=== PATIENT | female | born 1965 | race African-American/Black ===

== ENCOUNTER 2016-05-25 18:00 | Emergency (ER) | payer MEDICAID ==
--- NOTE | 2016-05-25 18:32 | ER Document Report ---
ED Medical Screen (RME) - General Stated Complaint: CHEST PAIN Notes: 51 yo female c/o chest tightness with palpitations since last night. + shortness of breath, left arm numbness. no previous cardiac hx. + HTN, no DM, + fam hx. non smoker. no aggrevating or alleviating factors. pain has improved since last night. pain 2/5 presently TRAVEL OUTSIDE OF THE [place] IN LAST 30 DAYS: No - Related Data Allergies/Adverse Reactions: No Known Allergies Allergy (Verified 05/25/16 18:11) Past Medical History GI Medical History: Reports: Hx Gastroesophageal Reflux Disease Past Surgical History: Reports: Hx Cholecystectomy - Immunizations Hx Diphtheria, Pertussis, Tetanus Vaccination: Yes
[2016-05-25 19:05] LABS: ABSOLUTE EOSINOPHILS # (AUTO) 0.3 10^3/uL (0.0-0.6); ABSOLUTE LYMPHOCYTES (AUTO) 4.4 10^3/uL (0.5-4.7); ABSOLUTE MONOCYTES (AUTO) 0.6 10^3/uL (0.1-1.4); ABSOLUTE NEUT (AUTO) 4.1 10^3/uL (1.7-8.2); BASOPHILS % (AUTO) 0.3 % (0-2); EOSINOPHILS % (AUTO) 2.8 % (0-6); HEMOGLOBIN 12.2 g/dL (12.0-15.5); HGB HCT DIFFERENCE -2.4; LYMPHOCYTES % (AUTO) 47.1 % (13-45); MEAN CORPUSCULAR HEMOGLOBIN 25.6 pg (27.0-33.4); MEAN CORPUSCULAR HGB CONC 31.2 g/dL (32.0-36.0); MEAN CORPUSCULAR VOLUME 82 fl (80-97); MONOCYTES % (AUTO) 6.2 % (3-13); RED BLOOD COUNT 4.75 10^6/uL (3.72-5.28); RED CELL DISTRIBUTION WIDTH 14.6 % (11.5-14.0); SEGMENTED NEUTROPHILS % (AUTO) 43.6 % (42-78); WHITE BLOOD COUNT 9.4 10^3/uL (4.0-10.5)
[2016-05-25 19:22] LABS: ALANINE AMINOTRANSFERASE 98 U/L (9-52); ALBUMIN 3.9 g/dL (3.5-5.0); ALKALINE PHOSPHATASE 116 U/L (38-126); ANION GAP 12 (5-19); ASPARTATE AMINO TRANSFERASE 81 U/L (14-36); BILIRUBIN,TOTAL 0.5 mg/dL (0.2-1.3); BLOOD UREA NITROGEN 17 mg/dL (7-20); CALCIUM 9.6 mg/dL (8.4-10.2); CARBON DIOXIDE 29 mmol/L (22-30); CHLORIDE 104 mmol/L (98-107); CREATINE KINASE 134 U/L (30-135); CREATININE RESULT 0.82 mg/dL (0.52-1.25); GLUCOSE 98 mg/dL (75-110); SODIUM 144.6 mmol/L (137-145); TOTAL PROTEIN 7.3 g/dL (6.3-8.2)
[2016-05-25 19:34] LABS: CREATINE KINASE MB 0.49 ng/mL (<4.55); TROPONIN I < 0.012 ng/mL
--- NOTE | 2016-05-25 20:48 | ER Document Report ---
ED Cardiac - General Mode of Arrival: Ambulatory Information source: Patient TRAVEL OUTSIDE OF THE [place] IN LAST 30 DAYS: No - HPI Patient complains to provider of: Chest pain, Palpitations. denies: Shortness of breath Use of: denies: Caffeine Chest pain location: Other - see above Cardiac risk factors: None Associated symptoms: Other - see above <OLI CARRASQUILLO - Last Filed: 05/26/16 02:25> - General TRAVEL OUTSIDE OF THE [place] IN LAST 30 DAYS: No <JULIUS HIGGINS - Last Filed: 05/26/16 03:08> - General Chief Complaint: Chest Pain > 30 Stated Complaint: CHEST PAIN Notes: 51 year old female presents to the ED complaining of left upper chest pain that started yesterday. Patient states that she had an episode of diaphoresis, heart palpitations and flutter, left upper chest pain, and an abnormal sensation to the chest yesterday afternoon that lasted for a few hours. Patient decided to take a sleeping pill and sleep it off. The patient woke up this morning with the symptoms resolved, but states that a few hours later she had another episode. Patient went to the urgent care and was told to come to the ED for lab work. Patient additionally states that she recently stopped taking gabapentin and started taking Lyrica yesterday. Patient denies shortness of breath and states that she is currently not in pain. Patient recently had her thyroid checked by her primary care provider, Dr. Quiñones. (OLI CARRASQUILLO) - Related Data Allergies/Adverse Reactions: No Known Allergies Allergy (Verified 05/25/16 18:11) Past Medical History - General Information source: Patient - Social History Smoking Status: Never Smoker Chew tobacco use (# tins/day): No Frequency of alcohol use: None Drug Abuse: None Family History: Other Patient has suicidal ideation: No Patient has homicidal ideation: No GI Medical History: Reports: Hx Gastroesophageal Reflux Disease Past Surgical History: Reports: Hx Cholecystectomy <OLI CARRASQUILLO - Last Filed: 05/26/16 02:25> - Social History Smoking Status: Never Smoker Chew tobacco use (# tins/day): No Frequency of alcohol use: None Drug Abuse: None Family History: Other - No family history of early heart attacks or strokes. Patient has suicidal ideation: No Patient has homicidal ideation: No Renal/ Medical History: Denies: Hx Peritoneal Dialysis GI Medical History: Reports: Hx Gastroesophageal Reflux Disease Past Surgical History: Reports: Hx Cholecystectomy - Immunizations Hx Diphtheria, Pertussis, Tetanus Vaccination: Yes <JULIUS HIGGINS - Last Filed: 05/26/16 03:08> Review of Systems - Review of Systems Constitutional: See HPI, Diaphoresis EENT: No symptoms reported Cardiovascular: See HPI, Chest pain - left upper chest, Palpitations, Other - flutter Respiratory: No symptoms reported Gastrointestinal: No symptoms reported Genitourinary: No symptoms reported Female Genitourinary: No symptoms reported Musculoskeletal: No symptoms reported Skin: No symptoms reported Hematologic/Lymphatic: No symptoms reported Neurological/Psychological: No symptoms reported -: Yes All other systems reviewed and negative <OLI CARRASQUILLO - Last Filed: 05/26/16 02:25> Physical Exam - Vital signs Interpretation: Normal - General General appearance: Alert In distress: None - HEENT Head: Normocephalic, Atraumatic Eyes: Normal Extraocular movements intact: Yes Pupils: PERRL - Respiratory Respiratory status: No respiratory distress Chest status: Nontender Breath sounds: Normal Chest palpation: Normal - Cardiovascular Rhythm: Regular Heart sounds: Normal auscultation - Abdominal Inspection: Normal - Back Back: Normal - Extremities General upper extremity: Normal inspection, Normal ROM General lower extremity: Normal inspection, Normal ROM - Neurological Neuro grossly intact: Yes Cognition: Normal Orientation: AAOx4 Fred Coma Scale Eye Opening: Spontaneous [place] Coma Scale Verbal: Oriented Fred Coma Scale Motor: Obeys Commands [place] Coma Scale Total: 15 Speech: Normal - Psychological Associated symptoms: Normal affect, Normal mood - Skin Skin Temperature: Warm Skin Moisture: Dry Skin Color: Normal <OLI CARRASQUILLO - Last Filed: 05/26/16 02:25> <JULIUS HIGGINS - Last Filed: 05/26/16 03:08> - Vital signs Vitals: Pulse Resp BP Pulse Ox 78 16 133/89 H 99 05/25/16 20:56 05/25/16 20:56 05/25/16 20:56 05/25/16 20:56 Course - Laboratory Result Diagrams: 05/25/16 18:35 05/25/16 18:35 <OLI CARRASQUILLO - Last Filed: 05/26/16 02:25> - Laboratory Result Diagrams: 05/25/16 18:35 05/25/16 18:35 - Diagnostic Test Radiology reviewed: Reports reviewed - EKG Interpretation by Me EKG shows normal: Sinus rhythm Rate: Normal Rhythm: NSR <JULIUS HIGGINS - Last Filed: 05/26/16 03:08> - Re-evaluation Re-evalutation: 05/25 Patient is no acute findings on blood work or imaging. Patient recently started there cutting could be having palpitations from that. She isn't follow- up appointment with her doctor in the morning. Patient wants to go home. No symptoms currently. Stable for discharge. Return if any worsening or concerning symptoms. Understands and agrees with plan. (JULIUS HIGGINS) - Vital Signs Vital signs: Temp Pulse Resp BP Pulse Ox 78 16 133/89 H 99 05/25/16 20:56 05/25/16 20:56 05/25/16 20:56 05/25/16 20:56 - Laboratory Laboratory results interpreted by me: 05/25/16 05/25/16 18:35 18:35 MCH 25.6 L MCHC 31.2 L RDW 14.6 H Lymphocytes % 47.1 H AST 81 H ALT 98 H (OLI CARRASQUILLO) (JULIUS HIGGINS) Discharge <OLI CARRASQUILLO - Last Filed: 05/26/16 02:25> <JULIUS HIGGINS - Last Filed: 05/26/16 03:08> - Discharge Clinical Impression: Atypical chest pain, Palpitations, Medication side effect Condition: Stable Disposition: HOME, SELF-CARE Instructions: Chest Pain of Unclear Cause ([facility]), Palpitations (Irregular or Rapid Heartrate) ([facility]), Medication Side Effects ([facility]) Forms: Return to Work Referrals: TAPAN QUIÑONES MD [Primary Care Provider] - Follow up tomorrow Scribe Documentation - Scribe Written by Marilou:: Marilou Ricardo, 05/25/2016 21:08 acting as scribe for :: Joaquín <OLI CARRASQUILLO - Last Filed: 05/26/16 02:25>
[2016-05-25 20:58] VITALS: BP 133/89
--- NOTE | 2016-05-25 21:46 | EKG REPORT ---
SEVERITY:- NORMAL ECG - SINUS RHYTHM : Confirmed by: Pinky Young MD 25-May-2016 21:45:37
== END 2016-05-25 21:02 | disposition home or self-care (01) ==
LOC: ER 18:00
DX: R07.89 Other chest pain (principal); R00.2 Palpitations; I49.8 Other specified cardiac arrhythmias; R61 Generalized hyperhidrosis; T50.995A Adverse effect of other drugs, medicaments and biological substances, initial encounter
CPT/HCPCS: 36415; 71020; 80053; 82550; 82553; 84484; 85025; 93005; 93010; 99285

== ENCOUNTER 2017-09-06 17:01 | Emergency (ER) | payer MEDICAID, OTHER ==
[2017-09-06] MEDS ORDERED: VALSARTAN 160 MG TABLET PO ONE (17:31)
[2017-09-06] MEDS ORDERED: HYDROCHLOROTHIAZIDE 12.5 MG CAPSULE PO ONE (17:31)
[2017-09-06] MEDS ORDERED: KETOROLAC TROMETHAMINE 60 MG/2 ML SDV IM ONE (17:33)
[2017-09-06 18:03] LABS: APPEARANCE,URINE SLIGHTLY-CLOUDY; BILIRUBIN,URINE NEGATIVE (NEGATIVE); COLOR,URINE YELLOW; GLUCOSE, URINE NEGATIVE (NEGATIVE); KETONES,URINE NEGATIVE (NEGATIVE); LEUKOCYTE ESTERASE,URINE TRACE (NEGATIVE); NITRITE,URINE NEGATIVE (NEGATIVE); PROTEIN,URINE NEGATIVE (NEGATIVE); URINE SPECIFIC GRAVITY 1.011; UROBILINOGEN,URINE NEGATIVE mg/dL (<2.0)
[2017-09-06] MEDS ORDERED: NITROFURANTOIN MONOHYD/M-CRYST 100 MG CAPSULE PO ONE (18:13)
--- NOTE | 2017-09-06 18:35 | ER Document Report ---
ED General - General Chief Complaint: High Blood Pressure Stated Complaint: HEADACHE/BLOOD PRESSURE ISSUES Time Seen by Provider: 09/06/17 17:28 TRAVEL OUTSIDE OF THE [place] IN LAST 30 DAYS: No - HPI Patient complains to provider of: Headache urinary frequency Notes: Patient around her blood pressure medication approximately 2 weeks ago started having headaches 2 days ago and also having urinary frequency. Patient describes headache as achy bilateral temporal region. Patient tried to obtain her medications for her PCP however returned to come to the ER for further evaluation. Denies any nausea vomiting denies any fevers chills. Patient resting comfortably upon my evaluation denies any recent trauma or antibiotic use. - Related Data Allergies/Adverse Reactions: No Known Allergies Allergy (Verified 09/06/17 17:17) Past Medical History - Social History Smoking Status: Never Smoker Chew tobacco use (# tins/day): No Frequency of alcohol use: Rare Drug Abuse: None Family History: Other - No family history of early heart attacks or strokes. Patient has suicidal ideation: No Patient has homicidal ideation: No - Past Medical History Cardiac Medical History: Reports: Hx Hypertension Renal/ Medical History: Denies: Hx Peritoneal Dialysis GI Medical History: Reports: Hx Gastroesophageal Reflux Disease Past Surgical History: Reports: Hx Cholecystectomy, Hx Orthopedic Surgery - right knee repair - Immunizations Hx Diphtheria, Pertussis, Tetanus Vaccination: Yes Review of Systems - Review of Systems Constitutional: No symptoms reported EENT: No symptoms reported Cardiovascular: No symptoms reported Respiratory: No symptoms reported Gastrointestinal: No symptoms reported Genitourinary: Frequency Female Genitourinary: No symptoms reported Musculoskeletal: No symptoms reported Skin: No symptoms reported Hematologic/Lymphatic: No symptoms reported Neurological/Psychological: Headaches -: Yes All other systems reviewed and negative Physical Exam - Vital signs Vitals: Temp Pulse Resp BP Pulse Ox 98.4 F 66 18 172/111 H 99 09/06/17 17:12 09/06/17 17:12 09/06/17 17:12 09/06/17 17:12 09/06/17 17:12 Interpretation: Hypertensive - General General appearance: Appears well, Alert - HEENT Head: Normocephalic, Atraumatic Eyes: Normal Pupils: PERRL - Respiratory Respiratory status: No respiratory distress Chest status: Nontender Breath sounds: Normal Chest palpation: Normal - Cardiovascular Rhythm: Regular Heart sounds: Normal auscultation Murmur: No - Abdominal Inspection: Normal Distension: No distension Bowel sounds: Normal Tenderness: Nontender Organomegaly: No organomegaly - Back Back: Normal, Nontender - Extremities General upper extremity: Normal inspection, Nontender, Normal color, Normal ROM , Normal temperature General lower extremity: Normal inspection, Nontender, Normal color, Normal ROM , Normal temperature, Normal weight bearing. No: Carol's sign - Neurological Neuro grossly intact: Yes Cognition: Normal Orientation: AAOx4 Fred Coma Scale Eye Opening: Spontaneous [place] Coma Scale Verbal: Oriented [place] Coma Scale Motor: Obeys Commands [place] Coma Scale Total: 15 Speech: Normal Motor strength normal: LUE, RUE, LLE, RLE Sensory: Normal - Psychological Associated symptoms: Normal affect, Normal mood - Skin Skin Temperature: Warm Skin Moisture: Dry Skin Color: Normal Course - Re-evaluation Re-evalutation: 09/06/17 20:48 Patient received her medications by mouth and a prescription was given to the patient. Urinalysis does show signs of bacteria urine culture was sent we will start the patient on Macrobid. Patient did have improvement of her headache with Toradol shot. Neurologically patient has no critical findings I feel patient is safe to be discharged home patient was very grateful for her care. The patient presents with headache without signs of ANESTHESIOLOGY MEDICAL DOCTOR bleed, stroke, infection , or other serious etiology. The patient is neurologically intact. Given the extremely low risk of these diagnoses further testing and evaluation for these possibilities does not appear to be indicated at this time. The patient has been instructed to return if the symptoms worsen or change in any way.. - Vital Signs Vital signs: Temp Pulse Resp BP Pulse Ox 98.4 F 66 18 172/111 H 99 09/06/17 17:12 09/06/17 17:12 09/06/17 17:12 09/06/17 17:12 09/06/17 17:12 - Laboratory Laboratory results interpreted by me: 09/06/17 17:35 Urine Blood MODERATE H Ur Leukocyte Esterase TRACE H Discharge - Discharge Clinical Impression: Hypertension Qualifiers: Hypertension type: unspecified Qualified Code(s): I10 - Essential (primary) hypertension UTI (urinary tract infection) Qualifiers: Urinary tract infection type: site unspecified Hematuria presence: without hematuria Qualified Code(s): N39.0 - Urinary tract infection, site not specified Condition: Good Disposition: HOME, SELF-CARE Instructions: Urinary Tract Infection ([facility]), High Blood Pressure ([facility]) Additional Instructions: Please follow-up with your primary care physician. Your urinalysis does show signs of a urinary tract infection with bacteria. We will start you on antibiotic called Macrobid. Take your blood pressure medication as prescribed. Recommend Tylenol Motrin for pain control. Prescriptions: Hydrochlorothiazide 12.5 mg PO DAILY #30 capsule Nitrofurantoin/Nitrofuran Mac [Macrobid 100 mg Capsule] 1 tab PO BID #14 capsule Valsartan 160 mg PO DAILY #30 tablet Referrals: TAPAN QUIÑONES MD [Primary Care Provider] - Follow up in 1 week
[2017-09-06 19:00] VITALS: BP 155/90
== END 2017-09-06 19:00 | disposition home or self-care (01) ==
LOC: ER 17:01
DX: I10 Essential (primary) hypertension (principal); T50.2X6A Underdosing of carbonic-anhydrase inhibitors, benzothiadiazides and other diuretics, initial encounter; T44.5X6A Underdosing of predominantly beta-adrenoreceptor agonists, initial encounter; Z91.128 Patient's intentional underdosing of medication regimen for other reason; Z91.14 Patient's other noncompliance with medication regimen; N39.0 Urinary tract infection, site not specified; R35.0 Frequency of micturition; R51 Headache
CPT/HCPCS: 99283; 96372; 87086; 87088; 81001; 87186; J1885; J8499

== ENCOUNTER 2018-11-12 12:02 | Emergency (ER) | payer BC ==
--- NOTE | 2018-11-12 13:31 | RADIOLOGY REPORT (SQ) ---
EXAM DESCRIPTION: CHEST 2 VIEWS COMPLETED DATE/TIME: 11/12/2018 1:17 pm REASON FOR STUDY: Chest Pain COMPARISON: 05/25/2016 EXAM PARAMETERS: NUMBER OF VIEWS: two views TECHNIQUE: Digital Frontal and Lateral radiographic views of the chest acquired. RADIATION DOSE: NA LIMITATIONS: none FINDINGS: LUNGS AND PLEURA: No opacities, masses or pneumothorax. No pleural effusion. MEDIASTINUM AND HILAR STRUCTURES: No masses or contour abnormalities. HEART AND VASCULAR STRUCTURES: Heart normal size. No evidence for failure. BONES: No acute findings. HARDWARE: None in the chest. OTHER: No other significant finding. IMPRESSION: No acute abnormality of the lungs. TECHNICAL DOCUMENTATION: JOB ID: [id number] [employer]- All Rights Reserved Reading location - IP/workstation name: [email or web address]
--- NOTE | 2018-11-12 13:36 | ER Document Report ---
ED Medical Screen (RME) - General Chief Complaint: Weakness Stated Complaint: DIZZINESS Time Seen by Provider: 11/12/18 13:16 Primary Care Provider: TAPAN QUIÑONES MD [Primary Care Provider] - Follow up as needed Mode of Arrival: Ambulatory Information source: Patient Notes: Patient presents emergency department with feelings of weak dizzy. Reports she felt dizzy yesterday. She reports when she went to work this morning she took her blood pressures and noticed they were low. Patient reports history of hypertension. Patient reports when she got up to walk into the RME. She became dizzy and weak again. Blood pressure is 83/67. Patient reports she feels really weak tired she is falling asleep in RME chair. Reports left arm numbness but has history of this. Reports history of fibromyalgia. Denies headache. Denies chest pain shortness of breath. Denies fever vomiting diarrhea. Ports she is been eating and drinking as normal. Reports she has not taken her blood pressure medication since yesterday morning. I have greeted and performed a rapid initial assessment of this patient. A comprehensive ED assessment and evaluation of the patient, analysis of test results and completion of the medical decision making process will be conducted by additional ED providers. Dictation of this chart was performed using voice recognition software; therefore, there may be some unintended grammatical errors. TRAVEL OUTSIDE OF THE [place] IN LAST 30 DAYS: No - HPI Onset: Yesterday - Related Data Allergies/Adverse Reactions: No Known Allergies Allergy (Verified 11/12/18 12:15) Past Medical History - General Information source: Patient Last Menstrual Period: menopause - Past Medical History Cardiac Medical History: Reports: Hx Hypertension Renal/ Medical History: Denies: Hx Peritoneal Dialysis GI Medical History: Reports: Hx Gastroesophageal Reflux Disease Past Surgical History: Reports: Hx Cholecystectomy, Hx Orthopedic Surgery - right knee repair - Immunizations Hx Diphtheria, Pertussis, Tetanus Vaccination: Yes Physical Exam - Vital signs Vitals: Temp Pulse Resp BP Pulse Ox 98.3 F 115 H 20 98/70 L 96 11/12/18 12:29 11/12/18 12:29 11/12/18 12:29 11/12/18 12:29 11/12/18 12:29 Course - Vital Signs Vital signs: Temp Pulse Resp BP Pulse Ox 98.3 F 115 H 20 98/70 L 96 11/12/18 12:29 11/12/18 12:29 11/12/18 12:29 11/12/18 12:29 11/12/18 12:29 Doctor's Discharge - Discharge Referrals: TAPAN QUIÑONES MD [Primary Care Provider] - Follow up as needed
[2018-11-12] MEDS ORDERED: NORMAL SALINE 1000 ML 1,000 ML IV ONE ×2 (13:41→19:20)
[2018-11-12 14:04] LABS: ABSOLUTE EOSINOPHILS # (AUTO) 0.2 10^3/uL (0.0-0.6); ABSOLUTE MONOCYTES (AUTO) 0.5 10^3/uL (0.1-1.4); ABSOLUTE NEUT (AUTO) 4.2 10^3/uL (1.7-8.2); BASOPHILS % (AUTO) 0.5 % (0-2); EOSINOPHILS % (AUTO) 2.1 % (0-6); HEMATOCRIT 35.9 % (36.0-47.0); HEMOGLOBIN 11.8 g/dL (12.0-15.5); MEAN CORPUSCULAR HEMOGLOBIN 26.9 pg (27.0-33.4); MEAN CORPUSCULAR VOLUME 82 fl (80-97); MONOCYTES % (AUTO) 5.7 % (3-13); PLATELET COUNT 325 10^3/uL (150-450); RED BLOOD COUNT 4.41 10^6/uL (3.72-5.28); RED CELL DISTRIBUTION WIDTH 14.1 % (11.5-14.0); SEGMENTED NEUTROPHILS % (AUTO) 46.7 % (42-78); TOTAL CELLS COUNTED % (AUTO) 100 %
[2018-11-12 14:09] LABS: PROTHROMBIN TIME 13.2 SEC (11.4-15.4)
[2018-11-12 14:10] LABS: APPEARANCE,URINE CLEAR; BILIRUBIN,URINE NEGATIVE (NEGATIVE); COLOR,URINE YELLOW; GLUCOSE, URINE NEGATIVE (NEGATIVE); KETONES,URINE NEGATIVE (NEGATIVE); LEUKOCYTE ESTERASE,URINE NEGATIVE (NEGATIVE); NITRITE,URINE NEGATIVE (NEGATIVE); PROTEIN,URINE NEGATIVE (NEGATIVE); URINE SPECIFIC GRAVITY 1.027; UROBILINOGEN,URINE NEGATIVE mg/dL (<2.0)
[2018-11-12 14:21] LABS: ALANINE AMINOTRANSFERASE 32 U/L (9-52); ALBUMIN 4.1 g/dL (3.5-5.0); ALKALINE PHOSPHATASE 71 U/L (38-126); ANION GAP 8 (5-19); ASPARTATE AMINO TRANSFERASE 23 U/L (14-36); BILIRUBIN,DIRECT 0.3 mg/dL (0.0-0.4); BILIRUBIN,TOTAL 0.3 mg/dL (0.2-1.3); BLOOD UREA NITROGEN 48 mg/dL (7-20); CALCIUM 9.4 mg/dL (8.4-10.2); CARBON DIOXIDE 25 mmol/L (22-30); CHLORIDE 106 mmol/L (98-107); CREATINE KINASE 122 U/L (30-135); GLUCOSE 99 mg/dL (75-110); SODIUM 139.3 mmol/L (137-145); TOTAL PROTEIN 6.9 g/dL (6.3-8.2)
--- NOTE | 2018-11-12 14:30 | RADIOLOGY REPORT (SQ) ---
EXAM DESCRIPTION: CT HEAD WITHOUT COMPLETED DATE/TIME: 11/12/2018 2:16 pm REASON FOR STUDY: weakness, dizzy COMPARISON: 09/14/2015 TECHNIQUE: Axial images acquired through the brain without intravenous contrast. Images reviewed wit h bone, brain and subdural windows. Images stored on PACS. All CT scanners at this facility use dose modulation, iterative reconstruction, and/or weight based d osing when appropriate to reduce radiation dose to as low as reasonably achievable (ALARA). [facility]: Dose Right [facility]: CareDose [facility]: Dose Right [facility]: Teradose 4D [facility]: [employer] RADIATION DOSE: CT Rad equipment meets quality standard of care and radiation dose reduction techniq ues were employed. CTDIvol: 53.2 mGy. DLP: 1124 mGy-cm.. LIMITATIONS: None. FINDINGS: VENTRICLES: Normal size and contour. CEREBRUM: No masses. No hemorrhage. No midline shift. Age appropriate white matter. No evidence for a cute infarction. CEREBELLUM: No masses. No hemorrhage. No alteration of density. No evidence for acute infarction. EXTRA-AXIAL SPACES: No fluid collections. ORBITS AND GLOBE: No intra- or extraconal masses. Normal contour of globe without masses. CALVARIUM: No fracture. PARANASAL SINUSES: No fluid or mucosal thickening. SOFT TISSUES: No mass or hematoma. OTHER: No other significant finding. IMPRESSION: NO ACUTE INTRACRANIAL FINDINGS. EVIDENCE OF ACUTE STROKE: NO. TECHNICAL DOCUMENTATION: JOB ID: [id number] Quality ID # [id number]: Final reports with documentation of one or more dose reduction techniques (e.g., Au tomated exposure control, adjustment of the mA and/or kV according to patient size, use of iterative reconstruction technique) 2010 [employer]- All Rights Reserved Reading location - IP/workstation name: [email or web address]
[2018-11-12 14:32] LABS: CREATINE KINASE MB 0.55 ng/mL (<4.55); TROPONIN I 0.012 ng/mL
--- NOTE | 2018-11-12 19:24 | ER Document Report ---
ED General - General Chief Complaint: Weakness Stated Complaint: DIZZINESS Time Seen by Provider: 11/12/18 13:16 Primary Care Provider: TAPAN QUIÑONES MD [Primary Care Provider] - Follow up as needed Mode of Arrival: Ambulatory TRAVEL OUTSIDE OF THE [place] IN LAST 30 DAYS: No - HPI Notes: Patient is a 53-year-old female presents to the emergency department for evaluation of dizziness. She was at work. She states that every time she got up to do something she became extremely dizzy. She is an RN. She had a colleague check her blood pressure is not it was 70s over 40s. On further questioning the patient states she has a history of high blood pressure. She normally takes losartan/HCTZ. She ran out of that 2 weeks ago. She has not seen her doctor in several months, so her primary care physician refused called in. She was concerned about not taking any blood pressure medications, so she was taking a family members lisinopril. She states she has been having the symptoms for 48 hours, started the medication 3 days ago, but so believes that it is as a result of this medication change. She does have some tingling in her left upper extremity, but she states that this is not new. It is happened in the past. Otherwise she denies any pain. - Related Data Allergies/Adverse Reactions: No Known Allergies Allergy (Verified 11/12/18 12:15) Past Medical History - General Information source: Patient Last Menstrual Period: menopause - Social History Smoking Status: Never Smoker Frequency of alcohol use: None Drug Abuse: None Family History: Reviewed & Not Pertinent, Other - No family history of early heart attacks or strokes. Patient has suicidal ideation: No Patient has homicidal ideation: No - Past Medical History Cardiac Medical History: Reports: Hx Hypertension Renal/ Medical History: Denies: Hx Peritoneal Dialysis GI Medical History: Reports: Hx Gastroesophageal Reflux Disease Past Surgical History: Reports: Hx Cholecystectomy, Hx Orthopedic Surgery - right knee repair - Immunizations Hx Diphtheria, Pertussis, Tetanus Vaccination: Yes Review of Systems - Review of Systems Constitutional: See HPI EENT: No symptoms reported Cardiovascular: See HPI Respiratory: No symptoms reported Gastrointestinal: No symptoms reported Genitourinary: No symptoms reported Musculoskeletal: No symptoms reported Skin: No symptoms reported Neurological/Psychological: No symptoms reported Physical Exam - Vital signs Vitals: Temp Pulse Resp BP Pulse Ox 98.3 F 115 H 20 98/70 L 96 11/12/18 12:29 11/12/18 12:29 11/12/18 12:29 11/12/18 12:29 11/12/18 12:29 - Notes Notes: Vital signs reviewed, please refer to chart. Head is normocephalic, atraumatic. Pupils equal round, reactive to light. Neck is supple without meningismus. Heart is regular rate and rhythm. Lungs are clear to auscultation bilaterally. Abdomen is soft, nontender, normoactive bowel sounds throughout. Extremities without cyanosis, clubbing. Posterior calves are nontender. Peripheral pulses are equal. Skin is warm and dry. Patient is awake, alert, oriented x3. Cranial nerves II - XII are grossly intact without focal neurological deficits. Strength is plus 5 out of 5 bilateral upper and lower extremities. Sensation is intact. Reflexes symmetrical. Intact [id number], rapid alternating mov ements, [id number]. Course - Re-evaluation Re-evalutation: 11/12/18 19:23 Patient presents emergency department for evaluation. She is hypotensive. My strong suspicion is that this is secondary to her medication change to the li sinopril. She is clearly not tolerating it well. The patient agrees. She had been given a liter of normal saline, and her pressure seems to improve, but she did have some drops again. She was given a second bolus. She has no history of congestive heart failure. The patient was told she needs to discontinue the lisinopril as soon as possible. She will be restarted on her losartan. I will not administer the HCTZ at this time, she is to follow-up with her primary care physician in regards to the best choice in regards to that. She voiced understanding to this. She is to return to the ED with worsening or new concerning symptoms of any sort. - Vital Signs Vital signs: Temp Pulse Resp BP Pulse Ox 98.0 F 117 H 16 127/71 H 97 11/12/18 18:16 11/12/18 16:57 11/12/18 20:16 11/12/18 20:16 11/12/18 20:16 - Laboratory Result Diagrams: 11/12/18 13:49 11/12/18 13:49 Laboratory results interpreted by me: 11/12/18 11/12/18 13:49 13:49 Hgb 11.8 L Hct 35.9 L MCH 26.9 L RDW 14.1 H BUN 48 H Discharge - Discharge Clinical Impression: Hypotension Qualifiers: Hypotension type: hypotension due to drug Qualified Code(s): I95.2 - Hypotension due to drugs Condition: Stable Disposition: HOME, SELF-CARE Instructions: Hypotension ([facility]) Additional Instructions: I am writing you a prescription for valsartan, without HCTZ. Please take your blood pressure before restarting this medication. Follow-up with your primary care physician this week. Return to the emergency department with worsening or new concerning symptoms of any sort. Referrals: TAPAN QUIÑONES MD [Primary Care Provider] - Follow up as needed
[2018-11-12 20:54] VITALS: BP 117/83
--- NOTE | 2018-11-14 07:58 | EKG REPORT ---
SEVERITY:- BORDERLINE ECG - SINUS TACHYCARDIA PROBABLE LEFT ATRIAL ABNORMALITY NONSPECIFIC INFERIOR ST-T CHANGES : Confirmed by: Tony Reyes MD 14-Nov-2018 07:58:12
== END 2018-11-12 20:56 | disposition home or self-care (01) ==
LOC: ER 12:02
DX: R53.1 Weakness (principal); R42 Dizziness and giddiness; I95.2 Hypotension due to drugs; I10 Essential (primary) hypertension; Z90.49 Acquired absence of other specified parts of digestive tract
CPT/HCPCS: 93005; 99285; 96360; 96361; 36415; 82553; 82962; 82550; 85025; 85610; 80053; 81001; 84484; 71046; 70450; 93010; J7030

== ENCOUNTER 2018-11-12 22:58 | Inpatient (IN) | payer BC ==
[2018-11-12] MEDS ORDERED: PANTOPRAZOLE SODIUM 40 MG VIAL IV ONE (23:24)
[2018-11-13 00:13] LABS: ABSOLUTE BASOPHILS # (AUTO) 0.1 10^3/uL (0.0-0.2); ABSOLUTE EOSINOPHILS # (AUTO) 0.2 10^3/uL (0.0-0.6); ABSOLUTE LYMPHOCYTES (AUTO) 4.3 10^3/uL (0.5-4.7); ABSOLUTE MONOCYTES (AUTO) 0.7 10^3/uL (0.1-1.4); ABSOLUTE NEUT (AUTO) 7.1 10^3/uL (1.7-8.2); BASOPHILS % (AUTO) 0.5 % (0-2); EOSINOPHILS % (AUTO) 1.3 % (0-6); HEMATOCRIT 26.8 % (36.0-47.0); INTERNATIONAL RATION (INR) 1.09; LYMPHOCYTES % (AUTO) 34.8 % (13-45); MEAN CORPUSCULAR HEMOGLOBIN 26.8 pg (27.0-33.4); MEAN CORPUSCULAR HGB CONC 32.6 g/dL (32.0-36.0); MEAN CORPUSCULAR VOLUME 82 fl (80-97); MONOCYTES % (AUTO) 5.3 % (3-13); PARTIAL THROMBOPLASTIN TIME 21.4 SEC (23.5-35.8); PLATELET COUNT 258 10^3/uL (150-450); PROTHROMBIN TIME 14.1 SEC (11.4-15.4); RED BLOOD COUNT 3.27 10^6/uL (3.72-5.28); RED CELL DISTRIBUTION WIDTH 14.2 % (11.5-14.0); SEGMENTED NEUTROPHILS % (AUTO) 58.1 % (42-78); TOTAL CELLS COUNTED % (AUTO) 100 %; WHITE BLOOD COUNT 12.3 10^3/uL (4.0-10.5)
[2018-11-13] MEDS ORDERED: PANTOPRAZOLE SODIUM 40 MG VIAL IV PRN (00:28)
[2018-11-13] MEDS ORDERED: NORMAL SALINE 250 ML IV PRN (00:29)
[2018-11-13 00:31] LABS: HEMOGLOBIN 8.7 g/dL (12.0-15.5)
[2018-11-13 00:35] LABS: ALANINE AMINOTRANSFERASE 32 U/L (9-52); ALBUMIN 3.3 g/dL (3.5-5.0); ALKALINE PHOSPHATASE 60 U/L (38-126); ASPARTATE AMINO TRANSFERASE 20 U/L (14-36); BILIRUBIN,DIRECT 0.2 mg/dL (0.0-0.4); BILIRUBIN,TOTAL 0.3 mg/dL (0.2-1.3); BLOOD UREA NITROGEN 45 mg/dL (7-20); CALCIUM 8.2 mg/dL (8.4-10.2); CARBON DIOXIDE 23 mmol/L (22-30); CHLORIDE 111 mmol/L (98-107); GLUCOSE 93 mg/dL (75-110); POTASSIUM 4.4 mmol/L (3.6-5.0); TOTAL PROTEIN 5.8 g/dL (6.3-8.2)
[2018-11-13 00:40] LABS: SODIUM 137.2 mmol/L (137-145)
[2018-11-13 00:41] LABS: ANION GAP 3 (5-19)
[2018-11-13] MEDS ORDERED: HETASTARCH IV ONE (00:51)
[2018-11-13] MEDS ORDERED: SODIUM CHLORIDE IV ONE (00:51)
[2018-11-13] MEDS ORDERED: NORMAL SALINE 1000 ML 1,000 ML IV ONE (01:07)
--- NOTE | 2018-11-13 01:26 | ER Document Report ---
ED General - General Chief Complaint: Nausea/Vomiting Stated Complaint: VOMITING Time Seen by Provider: 11/12/18 23:24 TRAVEL OUTSIDE OF THE [place] IN LAST 30 DAYS: No - HPI Notes: Patient is a 53-year-old female presents to the emergency department for evaluation. I actually had the pleasure of seeing this woman earlier tonight for low blood pressure. At that time she had no pain or complaints. We had attributed her possible low blood pressure to changing medications. She just started some lisinopril. She went home, and had a large episode of coffee- ground emesis. She denies any abdominal pain. She recently had an EGD and was told it was unremarkable. She has a history of GERD, has been taking her Dexilant as prescribed. She denies any recent melena, although she does admit that she had a "urge to move her bowels" earlier today. - Related Data Allergies/Adverse Reactions: No Known Allergies Allergy (Verified 11/12/18 12:15) Past Medical History - General Information source: Patient - Social History Smoking Status: Never Smoker Family History: Reviewed & Not Pertinent, Other - No family history of early heart attacks or strokes. - Past Medical History Cardiac Medical History: Reports: Hx Hypertension Renal/ Medical History: Denies: Hx Peritoneal Dialysis GI Medical History: Reports: Hx Gastroesophageal Reflux Disease Past Surgical History: Reports: Hx Cholecystectomy, Hx Orthopedic Surgery - right knee repair - Immunizations Hx Diphtheria, Pertussis, Tetanus Vaccination: Yes Review of Systems - Review of Systems Constitutional: See HPI EENT: No symptoms reported Cardiovascular: No symptoms reported Respiratory: No symptoms reported Gastrointestinal: See HPI Genitourinary: No symptoms reported Female Genitourinary: No symptoms reported Musculoskeletal: No symptoms reported Skin: No symptoms reported Neurological/Psychological: See HPI Physical Exam - Vital signs Vitals: Temp 98.8 F 11/12/18 22:59 - Notes Notes: Vital signs reviewed, please refer to chart. Head is normocephalic, atraumatic. Pupils equal round, reactive to light. Neck is supple without meningismus. Heart is regular rate and rhythm. Lungs are clear to auscultation bilaterally. Abdomen is soft, nontender, normoactive bowel sounds throughout. Extremities without cyanosis, clubbing. Posterior calves are nontender. Peripheral pulses are equal. Skin is warm and dry. Patient is awake, alert, neurological exam is nonfocal. Rectal exam is performed with RN present. Very small amount of brown stool palpable in the rectal vault. This is found to be negative. Course - Re-evaluation Re-evalutation: 11/13/18 01:24 Patient presented to the emergency department for evaluation. She had been given 2 L of normal saline earlier today and discharge. She did not have any symptoms of GI bleeding at that time, and I reiterated this with the patient. Here her hemoglobin had dropped over 3 g. I did initially order blood. Upon further questioning I found that the patient is in fact a Yarsanism. She states she only wants blood if it is "acutely life or ." I did cancel the blood. She was given Hespan. I started on further IV fluids. She was also given Protonix bolus and drip. Currently patient's blood pressure is 97/71. She remained stable. I did explain to the patient the blood is much more efficient delivery system for oxygen, but of course we would respect her sabianist wishes. She voiced understanding to this. I spoke with Dr. Mota at 1323. He is available should something become emergent. I was notified by the tracing lathe set up operator that the hospital will have gastroenterology salesperson terrazzo tiles starting tomorrow morning, Dr. Barraza. I am currently awaiting phone call back from Dr. Kumar. Patient remained stable. 11/13/18 01:[address] Kumar, he will admit the patient. Patient's blood pressure has remained stable in the 90s. - Vital Signs Vital signs: Temp Pulse Resp BP Pulse Ox 98.8 F 21 H 97/71 L 98 11/13/18 00:02 11/13/18 01:01 11/13/18 01:01 11/13/18 01:01 - Laboratory Result Diagrams: 11/12/18 23:56 11/12/18 23:56 Laboratory results interpreted by me: 11/12/18 11/12/18 11/12/18 23:56 23:56 23:56 WBC 12.3 H RBC 3.27 L Hgb 8.7 L D Hct 26.8 L MCH 26.8 L RDW 14.2 H APTT 21.4 L Chloride 111 H Anion Gap 3 L BUN 45 H Calcium 8.2 L Total Protein 5.8 L Albumin 3.3 L Crossmatch 11/13/18 00:30 WBC RBC Hgb Hct MCH RDW APTT Chloride Anion Gap BUN Calcium Total Protein Albumin Crossmatch See Detail Discharge - Discharge Clinical Impression: Upper GI bleed, Acute blood loss anemia Condition: Stable Disposition: ADMITTED INPATIENT Admitting Provider: Stacy Unit Admitted: [facility]
[2018-11-13] MEDS: PANTOPRAZOLE SODIUM 40 MG VIAL IV SCH ×2 (10:14→22:19)
[2018-11-13] MEDS: NORMAL SALINE 1000 ML 1,000 ML IV PRN (11:07)
[2018-11-13 11:34] LABS: ABSOLUTE BASOPHILS # (AUTO) 0.1 10^3/uL (0.0-0.2); ABSOLUTE EOSINOPHILS # (AUTO) 0.2 10^3/uL (0.0-0.6); ABSOLUTE LYMPHOCYTES (AUTO) 3.2 10^3/uL (0.5-4.7); ABSOLUTE MONOCYTES (AUTO) 0.5 10^3/uL (0.1-1.4); ABSOLUTE NEUT (AUTO) 3.6 10^3/uL (1.7-8.2); EOSINOPHILS % (AUTO) 2.2 % (0-6); HEMATOCRIT 21.3 % (36.0-47.0); LYMPHOCYTES % (AUTO) 42.6 % (13-45); MEAN CORPUSCULAR HEMOGLOBIN 27.2 pg (27.0-33.4); MEAN CORPUSCULAR HGB CONC 33.2 g/dL (32.0-36.0); MEAN CORPUSCULAR VOLUME 82 fl (80-97); MONOCYTES % (AUTO) 6.6 % (3-13); PLATELET COUNT 201 10^3/uL (150-450); RED CELL DISTRIBUTION WIDTH 14.1 % (11.5-14.0); SEGMENTED NEUTROPHILS % (AUTO) 47.6 % (42-78); TOTAL CELLS COUNTED % (AUTO) 100 %; WHITE BLOOD COUNT 7.6 10^3/uL (4.0-10.5)
[2018-11-13 11:40] LABS: HEMOGLOBIN 7.1 g/dL (12.0-15.5)
--- NOTE | 2018-11-13 12:50 | PDOC CONSULTATION ---
Consultation Consult Date: 11/13/18 Provider Consulted: LILO AGUILERA Consult reason:: coffee ground emesis History of Present Illness Admission Date/PCP: 11/13/18 02:03 TAPAN QUIÑONES History of Present Illness: JENNIFER VALENTINO is a 53 year old female I have been asked to see this patient who presented to the ED with coffee ground emesis had EGD in the past that was reportedly normal recently been started on an antihypertensive patient is admitted Hgb is noted she denies the use of recent NSIADS patient will need an EGD to rule out peptic ulcer disease start a PPI drip, and watch H/H will monitor Past Medical History Cardiac Medical History: Reports: Hypertension GI Medical History: Reports: Gastroesophageal Reflux Disease Past Surgical History Past Surgical History: Reports: Cholecystectomy, Orthopedic Surgery - right knee repair Social History Smoking Status: Never Smoker Family History Family History: Reviewed & Not Pertinent, Other - No family history of early heart attacks or strokes. Parental Family History Reviewed: Yes Children Family History Reviewed: Unknown Sibling(s) Family History Reviewed.: Unknown Medication/Allergy Home Medications: Escitalopram Oxalate [Lexapro 10 mg Tablet] 10 mg PO QHS 11/13/18 Gabapentin [Neurontin 400 mg Capsule] 800 mg PO Q8 11/13/18 Valsartan/Hydrochlorothiazide [Valsartan-Hctz 160-12.5 mg Tab] 1 each PO DAILY 11/13/18 Allergies/Adverse Reactions: No Known Allergies Allergy (Verified 11/12/18 12:15) Review of Systems Constitutional: ABSENT: fever(s), headache(s), night sweats, weakness Eyes: ABSENT: visual disturbances Ears: ABSENT: hearing changes Nose, Mouth, and Throat: ABSENT: mouth pain, sore throat Cardiovascular: ABSENT: edema, orthropnea Respiratory: ABSENT: dyspnea, hemoptysis Gastrointestinal: ABSENT: diarrhea, dysphagia, nausea Genitourinary: ABSENT: dysuria, hematuria Musculoskeletal: ABSENT: deformity, joint swelling Integumentary: ABSENT: lesions, pruritus Neurological: ABSENT: syncope, tingling, tremor(s), vertigo Endocrine: ABSENT: polydipsia, polyphagia, polyuria Hematologic/Lymphatic: ABSENT: easy bruising Physical Exam Vital Signs: Temp Pulse Resp BP Pulse Ox 99.2 F 15 107/64 98 11/13/18 03:01 11/13/18 09:00 11/13/18 09:00 11/13/18 09:00 Intake & Output 11/12/18 11/13/18 11/14/18 06:59 06:59 06:59 Intake Total 1000 Balance 1000 Weight 78.8 kg General appearance: PRESENT: no acute distress, well-developed, well-nourished Head exam: PRESENT: atraumatic, normocephalic Eye exam: PRESENT: EOMI, PERRLA. ABSENT: nystagmus, scleral icterus Mouth exam: PRESENT: moist Teeth exam: ABSENT: edentulous Throat exam: ABSENT: tonsillar exudate, tonsillogmegaly Neck exam: ABSENT: meningismus, tenderness, thyromegaly Respiratory exam: PRESENT: symmetrical, unlabored. ABSENT: tachypnea, wheezes Cardiovascular exam: PRESENT: RRR, +S1, +S2 GI/Abdominal exam: PRESENT: soft. ABSENT: rebound, rigid, tenderness Extremities exam: ABSENT: joint swelling Musculoskeletal exam: PRESENT: full ROM Neurological exam: PRESENT: oriented to time, oriented to situation, CN II-XII grossly intact Focused psych exam: ABSENT: restlessness Skin exam: PRESENT: normal color. ABSENT: mottled, pallor, urticaria, vesicles Results Laboratory Results: 11/13/18 11:19 11/12/18 23:56 11/12/18 11/12/18 11/13/18 23:56 23:56 00:30 WBC 12.3 H RBC 3.27 L Hgb 8.7 L D Hct 26.8 L MCV 82 MCH 26.8 L MCHC 32.6 RDW 14.2 H Plt Count 258 Seg Neutrophils % 58.1 Lymphocytes % 34.8 Monocytes % 5.3 Eosinophils % 1.3 Basophils % 0.5 Absolute Neutrophils 7.1 Absolute Lymphocytes 4.3 Absolute Monocytes 0.7 Absolute Eosinophils 0.2 Absolute Basophils 0.1 Sodium 137.2 Potassium 4.4 Chloride 111 H Carbon Dioxide 23 Anion Gap 3 L BUN 45 H Creatinine 0.65 Est GFR ( Amer) > 60 Est GFR (Non-Af Amer) > 60 Glucose 93 Calcium 8.2 L Total Bilirubin 0.3 AST 20 ALT 32 Alkaline Phosphatase 60 Total Protein 5.8 L Albumin 3.3 L Blood Type A POSITIVE Antibody Screen NEGATIVE 11/13/18 11:19 WBC 7.6 RBC 2.60 L Hgb 7.1 L Hct 21.3 L MCV 82 MCH 27.2 MCHC 33.2 RDW 14.1 H Plt Count 201 Seg Neutrophils % 47.6 Lymphocytes % 42.6 Monocytes % 6.6 Eosinophils % 2.2 Basophils % 1.0 Absolute Neutrophils 3.6 Absolute Lymphocytes 3.2 Absolute Monocytes 0.5 Absolute Eosinophils 0.2 Absolute Basophils 0.1 Sodium Potassium Chloride Carbon Dioxide Anion Gap BUN Creatinine Est GFR ( Amer) Est GFR (Non-Af Amer) Glucose Calcium Total Bilirubin AST ALT Alkaline Phosphatase Total Protein Albumin Blood Type Antibody Screen Assessment & Plan - Diagnosis (1) Coffee ground emesis Plan: ? possible peptic ulcer disease, vs a Bettye Duran tear will need EGD transfuse as needed start on a PPI Risks, benefits and alternatives are discussed with the patient in detail further recommendations to follow - Time Time Spent: 50 to 70 Minutes
[2018-11-13] MEDS: GABAPENTIN 400 MG CAPSULE PO SCH (22:39)
[2018-11-13] MEDS: ESCITALOPRAM OXALATE 10 MG TABLET PO SCH (22:39)
[2018-11-14 05:17] LABS: MEAN CORPUSCULAR HEMOGLOBIN 27.6 pg (27.0-33.4); MEAN CORPUSCULAR HGB CONC 33.9 g/dL (32.0-36.0); MEAN CORPUSCULAR VOLUME 81 fl (80-97); PLATELET COUNT 212 10^3/uL (150-450); RED BLOOD COUNT 2.45 10^6/uL (3.72-5.28); RED CELL DISTRIBUTION WIDTH 14.2 % (11.5-14.0); WHITE BLOOD COUNT 7.5 10^3/uL (4.0-10.5)
[2018-11-14] MEDS: GABAPENTIN 400 MG CAPSULE PO SCH ×3 (05:21→21:51)
[2018-11-14 05:22] LABS: HEMOGLOBIN 6.8 g/dL (12.0-15.5)
[2018-11-14] MEDS ORDERED: DIPHENHYDRAMINE HCL 50 MG/ML VIAL ONE (08:48)
[2018-11-14] MEDS ORDERED: GLUCAGON,HUMAN RECOMB 1 MG INJ ONE (08:49)
[2018-11-14] MEDS ORDERED: MIDAZOLAM 2 MG/2 ML INJ ONE (08:49)
[2018-11-14] MEDS ORDERED: NALOXONE HCL INJ/PF 0.4 MG/1 ML SDV ONE (08:49)
[2018-11-14] MEDS ORDERED: ONDANSETRON HCL INJ/PF 4 MG/2 ML SDV ONE (08:49)
[2018-11-14] MEDS ORDERED: EPINEPHRINE INJ 1 MG/10 ML DISP.SYRIN ONE (08:49)
[2018-11-14] MEDS ORDERED: FENTANYL CITRATE INJ/PF 100 MCG/2 ML AMPUL ONE (08:49)
[2018-11-14] MEDS ORDERED: FLUMAZENIL INJ 0.5 MG/5 ML VIAL ONE (08:49)
[2018-11-14] MEDS ORDERED: MIDAZOLAM 2 MG/2 ML INJ IV ONE ×2 (09:15→09:18)
[2018-11-14] MEDS ORDERED: FENTANYL CITRATE INJ/PF 100 MCG/2 ML AMPUL IV ONE (09:16)
--- NOTE | 2018-11-14 09:28 | Operative Report ---
Operative Report DATE OF SURGERY: 11/14/18 Operative Report: The risks benefits and alternatives of the procedure explained to the patient in detail and informed consent is obtained.A GIF Olympus video scope was inserted into the patient's mouth and hypopharynx, the esophagus is identified intubated and insufflated, the scope was then advanced through the esophagus stomach and duodenum, retroflexion maneuver is done, the esophagus stomach and first and second portions of the duodenum examined. PREOPERATIVE DIAGNOSIS: Coffee-ground emesis POSTOPERATIVE DIAGNOSIS: Several clean-based gastric ulcers. No active bleeding noted. Duodenitis. Biopsies obtained to rule out for Helicobacter pylori OPERATION: EGD with biopsy SURGEON: LILO GAUILERA ANESTHESIA: Moderate Sedation - 4 mg of Versed, 75 mcg of fentanyl. Conscious sedation monitoring time 30 minutes. TISSUE REMOVED OR ALTERED: As noted above. COMPLICATIONS: None. ESTIMATED BLOOD LOSS: None. INTRAOPERATIVE FINDINGS: As noted above. PROCEDURE: Patient tolerated the procedure well. No immediate post procedure complications are noted. Patient is discharged back to her room in good condition. Resume regular diet Resume previous activity level Weight on biopsies Transfuse as needed Continue PPI Outpatient follow-up
[2018-11-14] MEDS ORDERED: HYDROCHLOROTHIAZIDE 12.5 MG TABLET PO SCH (10:00)
[2018-11-14] MEDS ORDERED: (PENDING PHARMACY ID) (Valsartan/Hydrochlorothiazide [Valsartan-Hctz 160-12.5 Mg Tab] 1 EA PO SCH (10:00)
[2018-11-14] MEDS ORDERED: VALSARTAN 160 MG TABLET PO SCH (10:00)
[2018-11-14] MEDS: PANTOPRAZOLE SODIUM 40 MG VIAL IV SCH ×2 (11:00→22:14)
[2018-11-14] MEDS: NORMAL SALINE 1000 ML 1,000 ML IV PRN ×2 (11:33→22:15)
[2018-11-14] MEDS ORDERED: ACETAMINOPHEN 325 MG TABLET ONE (13:29)
--- NOTE | 2018-11-14 18:34 | PDOC PROGRESS REPORT ---
Subjective Progress Note for:: 11/14/18 Subjective:: Patient reported persistent of postural dizziness. No nausea or vomiting. Tarry stool persist but no hematemesis. No chest pain or difficulty with breathing. No fever or chills. She remain NPO for proposed EGD this morning. Reason For Visit: ACUTE UPPER GI BLEED, HTN,GERD Physical Exam Vital Signs: Temp Pulse Resp BP Pulse Ox 98.4 F 86 17 107/63 99 11/14/18 03:29 11/14/18 07:00 11/14/18 03:29 11/14/18 03:29 11/14/18 03:29 Intake & Output 11/13/18 11/14/18 11/15/18 06:59 06:59 06:59 Intake Total 2150 Balance 2150 Weight 78.8 kg 79.3 kg General appearance: PRESENT: no acute distress, well-developed, well-nourished Head exam: PRESENT: atraumatic, normocephalic Eye exam: PRESENT: conjunctiva pale. ABSENT: scleral icterus Ear exam: PRESENT: normal external ear exam Mouth exam: PRESENT: moist Respiratory exam: PRESENT: clear to auscultation abelino Cardiovascular exam: PRESENT: RRR. ABSENT: diastolic murmur, rubs, systolic murmur Vascular exam: ABSENT: pallor GI/Abdominal exam: PRESENT: normal bowel sounds, soft, tenderness - epigastric region. ABSENT: distended, guarding, mass, organolmegaly, rebound Extremities exam: ABSENT: pedal edema Musculoskeletal exam: ABSENT: tenderness Neurological exam: PRESENT: alert, awake, oriented to person, oriented to place, oriented to time, oriented to situation, CN II-XII grossly intact. ABSENT: motor sensory deficit Psychiatric exam: PRESENT: appropriate affect, normal mood. ABSENT: homicidal ideation, suicidal ideation Skin exam: PRESENT: dry, warm Results Laboratory Results: 11/14/18 04:13 11/12/18 23:56 11/13/18 11/14/18 11:19 04:13 WBC 7.6 7.5 RBC 2.60 L 2.45 L Hgb 7.1 L 6.8 L Hct 21.3 L 20.0 L MCV 82 81 MCH 27.2 27.6 MCHC 33.2 33.9 RDW 14.1 H 14.2 H Plt Count 201 212 Seg Neutrophils % 47.6 Lymphocytes % 42.6 Monocytes % 6.6 Eosinophils % 2.2 Basophils % 1.0 Absolute Neutrophils 3.6 Absolute Lymphocytes 3.2 Absolute Monocytes 0.5 Absolute Eosinophils 0.2 Absolute Basophils 0.1 Assessment & Plan - Diagnosis (1) Upper GI bleed Is this a current diagnosis for this admission?: Yes Plan: Continue current medication management and follow up on EGD findings. (2) Acute blood loss anemia Is this a current diagnosis for this admission?: Yes Plan: We will type and hold 3 units PRBC for transfusion. I had extensive discussion with patient regarding need and she still in the process of thinking about transfusion due to her congregation belief. (3) Hypotension Qualifiers: Hypotension type: hypotension due to drug Qualified Code(s): I95.2 - Hypot ension due to drugs Is this a current diagnosis for this admission?: Yes Plan: Improved. We will hold off on anti HTN medication until absolutely necessary. (4) HTN (hypertension) Qualifiers: Hypertension type: essential hypertension Qualified Code(s): I10 - Essential (primary) hypertension Is this a current diagnosis for this admission?: Yes Plan: Continue current medication management and limitation to necessity if SBP remain elevated. (5) GERD (gastroesophageal reflux disease) Qualifiers: Esophagitis presence: esophagitis presence not specified Qualified Code(s): K21.9 - Gastro-esophageal reflux disease without esophagitis Is this a current diagnosis for this admission?: Yes Plan: Maintain on current medication management and follow up on EGD findings. - Time Time Spent with patient: 25-34 minutes Medications reviewed and adjusted accordingly: Yes Anticipated discharge: Home Within: Other - Inpatient Certification Based on my medical assessment, after consideration of the patient's comorbidities, presenting symptoms, or acuity I expect that the services needed warrant INPATIENT care.: Yes I certify that my determination is in accordance with my understanding of Medicare's requirements for reasonable and necessary INPATIENT services [42 CFR 412.3e].: Yes Medical Necessity: Significant Comorbidiites Make Outpatient Treatment Too Risky, Need Close Monitoring Due to Risk of Patient Decompensation, Need For IV Fluids, Need For Continuous Telemetry Monitoring, Risk of Complication if Not Cared For in Hospital, Risk of Diagnosis Which Will Require Inpatient Yasmin l/Care/Monitoring Post Hospital Care: D/C Debubblizer Documentation - Plan Summary Plan Summary: Maintain on current medication management. Follow up on EGD findings.
--- NOTE | 2018-11-14 18:36 | PDOC H&P ---
History of Present Illness Admission Date/PCP: 11/13/18 02:03 TAPAN JOEYTone Patient complains of: Vomiting blood History of Present Illness: JENNIFER VALENTINO is a 53 year old female known to my practice who presented to the ED following her initial visit discharge vomiting bright red blood. Patient reported that her coworker checked her blood pressure due to reported episode of dizziness and found it low with associated tachycardia. She attributed this to h er recent treatment with Lisinopril but advised to seek medical attention. Her initial ED visit evaluation was unrevealing and she was subsequently discharge home with instruction to follow up in the office. She reported feeling nauseous at home and vomited bright red blood which led to her return to the ED. She admitted to daily use of Goody Powder. she had EGD completed recently and she was informed that it was normal. She has been on Dexilant therapy for GERD and reported compliance with her medication. She denied any definite abdominal pain, diarrhea, or constipation. She denied cigarette smoking, alcohol abuse, or illicit drug usage. She was managed with IV Protonix infusion and Hespan due to associated hypotension and tachycardia. There was noticeable drop in her hemoglobin on laboratory evaluation. She was advised hospitalization for acute upper GI bleeding. Patient subsequently had several episodes of tarry stools while in the ED. Her morbidities include hypertension and GERD. Past Medical History Cardiac Medical History: Reports: Hypertension GI Medical History: Reports: Gastroesophageal Reflux Disease Past Surgical History Past Surgical History: Reports: Cholecystectomy, Orthopedic Surgery - right knee repair Social History Smoking Status: Never Smoker Family History Family History: Reviewed & Not Pertinent, Other - No family history of early heart attacks or strokes. Parental Family History Reviewed: Yes Children Family History Reviewed: Yes Sibling(s) Family History Reviewed.: Yes Medication/Allergy Home Medications: Escitalopram Oxalate [Lexapro 10 mg Tablet] 10 mg PO QHS 11/13/18 Gabapentin [Neurontin 400 mg Capsule] 800 mg PO Q8 11/13/18 Valsartan/Hydrochlorothiazide [Valsartan-Hctz 160-12.5 mg Tab] 1 each PO DAILY 11/13/18 Allergies/Adverse Reactions: No Known Allergies Allergy (Verified 11/12/18 12:15) Review of Systems Constitutional: ABSENT: chills, fever(s), headache(s), weight gain, weight loss Eyes: ABSENT: visual disturbances Ears: ABSENT: hearing changes Nose, Mouth, and Throat: ABSENT: as per HPI, headache(s), mouth pain, sore throat, vertigo, other Cardiovascular: ABSENT: chest pain, dyspnea on exertion, edema, orthropnea, palpitations Respiratory: ABSENT: cough, hemoptysis Gastrointestinal: PRESENT: coffee ground emesis, hematemesis, nausea, vomiting Genitourinary: ABSENT: dysuria, hematuria Musculoskeletal: ABSENT: joint swelling Integumentary: ABSENT: rash, wounds Neurological: PRESENT: dizziness. ABSENT: abnormal gait, abnormal speech, confusion, focal weakness, syncope Psychiatric: ABSENT: anxiety, depression, homidical ideation, suicidal ideation Endocrine: ABSENT: cold intolerance, heat intolerance, menstrual abnormalities, polydipsia, polyuria Hematologic/Lymphatic: ABSENT: easy bleeding, easy bruising, lymphadenopathy Allergic/Immunologic: ABSENT: seasonal rhinorrhea Physical Exam Vital Signs: Temp Pulse Resp BP Pulse Ox 99.2 F 15 107/64 98 11/13/18 03:01 11/13/18 09:00 11/13/18 09:00 11/13/18 09:00 Intake & Output 11/12/18 11/13/18 11/14/18 06:59 06:59 06:59 Intake Total 1000 Balance 1000 Weight 78.8 kg General appearance: PRESENT: no acute distress, well-developed, well-nourished Head exam: PRESENT: atraumatic, normocephalic Eye exam: PRESENT: conjunctiva pale, EOMI, PERRLA. ABSENT: scleral icterus Ear exam: PRESENT: normal external ear exam Mouth exam: PRESENT: moist Neck exam: PRESENT: full ROM. ABSENT: carotid bruit, JVD, lymphadenopathy, thyromegaly Respiratory exam: PRESENT: clear to auscultation abelino Cardiovascular exam: PRESENT: RRR. ABSENT: diastolic murmur, rubs, systolic murmur Vascular exam: PRESENT: pallor GI/Abdominal exam: PRESENT: tenderness - epigastric region to deep palpation Rectal exam: PRESENT: deferred Extremities exam: ABSENT: pedal edema Musculoskeletal exam: ABSENT: ambulatory, deformity, dislocation, full ROM, normal inspection, tenderness, other Neurological exam: PRESENT: alert, awake, oriented to person, oriented to place, oriented to time, oriented to situation, CN II-XII grossly intact. ABSENT: motor sensory deficit Psychiatric exam: PRESENT: appropriate affect, normal mood. ABSENT: homicidal ideation, suicidal ideation Skin exam: PRESENT: dry, warm Results Laboratory Results: 11/13/18 11:19 11/12/18 23:56 11/12/18 11/12/18 11/13/18 23:56 23:56 00:30 WBC 12.3 H RBC 3.27 L Hgb 8.7 L D Hct 26.8 L MCV 82 MCH 26.8 L MCHC 32.6 RDW 14.2 H Plt Count 258 Seg Neutrophils % 58.1 Lymphocytes % 34.8 Monocytes % 5.3 Eosinophils % 1.3 Basophils % 0.5 Absolute Neutrophils 7.1 Absolute Lymphocytes 4.3 Absolute Monocytes 0.7 Absolute Eosinophils 0.2 Absolute Basophils 0.1 Sodium 137.2 Potassium 4.4 Chloride 111 H Carbon Dioxide 23 Anion Gap 3 L BUN 45 H Creatinine 0.65 Est GFR ( Amer) > 60 Est GFR (Non-Af Amer) > 60 Glucose 93 Calcium 8.2 L Total Bilirubin 0.3 AST 20 ALT 32 Alkaline Phosphatase 60 Total Protein 5.8 L Albumin 3.3 L Blood Type A POSITIVE Antibody Screen NEGATIVE 11/13/18 11:19 WBC 7.6 RBC 2.60 L Hgb 7.1 L Hct 21.3 L MCV 82 MCH 27.2 MCHC 33.2 RDW 14.1 H Plt Count 201 Seg Neutrophils % 47.6 Lymphocytes % 42.6 Monocytes % 6.6 Eosinophils % 2.2 Basophils % 1.0 Absolute Neutrophils 3.6 Absolute Lymphocytes 3.2 Absolute Monocytes 0.5 Absolute Eosinophils 0.2 Absolute Basophils 0.1 Sodium Potassium Chloride Carbon Dioxide Anion Gap BUN Creatinine Est GFR ( Amer) Est GFR (Non-Af Amer) Glucose Calcium Total Bilirubin AST ALT Alkaline Phosphatase Total Protein Albumin Blood Type Antibody Screen Assessment & Plan - Diagnosis (1) Upper GI bleed Is this a current diagnosis for this admission?: Yes Plan: See admitting attending physician orders for details about care plan. (2) Acute blood loss anemia Is this a current diagnosis for this admission?: Yes Plan: See admitting attending physician orders for details about care plan. (3) Hypotension Qualifiers: Hypotension type: hypotension due to drug Qualified Code(s): I95.2 - Hypotension due to drugs (4) HTN (hypertension) Qualifiers: Hypertension type: essential hypertension Qualified Code(s): I10 - Essential (primary) hypertension Is this a current diagnosis for this admission?: Yes Plan: See admitting attending physician orders for details about care plan. (5) GERD (gastroesophageal reflux disease) Qualifiers: Esophagitis presence: esophagitis presence not specified Qualified Code(s): K21.9 - Gastro-esophageal reflux disease without esophagitis Is this a current diagnosis for this admission?: Yes Plan: See admitting attending physician orders for details about care plan. - Time Time Spent: 50 to 70 Minutes Medications reviewed and adjusted accordingly: Yes Anticipated discharge: Home Within: Other - Inpatient Certification Based on my medical assessment, after consideration of the patient's comorbidit ies, presenting symptoms, or acuity I expect that the services needed warrant INPATIENT care.: Yes I certify that my determination is in accordance with my understanding of Me nehal's requirements for reasonable and necessary INPATIENT services [42 CFR 412.3e].: Yes Medical Necessity: Significant Comorbidiites Make Outpatient Treatment Too Risky, Need Close Monitoring Due to Risk of Patient Decompensation, Need For IV Fluids, Need For Continuous Telemetry Monitoring, Risk of Complication if Not Cared For in Hospital, Risk of Diagnosis Which Will Require Inpatient Eval/Care/Monitoring Post Hospital Care: D/C Maintenance Chief Documentation - Plan Summary Plan Summary: See admitting attending physician orders for details about care plan.
[2018-11-14 20:37] LABS: ABSOLUTE EOSINOPHILS # (AUTO) 0.3 10^3/uL (0.0-0.6); ABSOLUTE LYMPHOCYTES (AUTO) 3.8 10^3/uL (0.5-4.7); ABSOLUTE MONOCYTES (AUTO) 0.5 10^3/uL (0.1-1.4); ABSOLUTE NEUT (AUTO) 3.1 10^3/uL (1.7-8.2); BASOPHILS % (AUTO) 0.6 % (0-2); EOSINOPHILS % (AUTO) 3.5 % (0-6); HEMATOCRIT 22.3 % (36.0-47.0); LYMPHOCYTES % (AUTO) 49.6 % (13-45); MEAN CORPUSCULAR HEMOGLOBIN 27.4 pg (27.0-33.4); MEAN CORPUSCULAR HGB CONC 33.5 g/dL (32.0-36.0); MEAN CORPUSCULAR VOLUME 82 fl (80-97); MONOCYTES % (AUTO) 6.3 % (3-13); PLATELET COUNT 238 10^3/uL (150-450); RED BLOOD COUNT 2.72 10^6/uL (3.72-5.28); RED CELL DISTRIBUTION WIDTH 14.3 % (11.5-14.0); TOTAL CELLS COUNTED % (AUTO) 100 %; WHITE BLOOD COUNT 7.7 10^3/uL (4.0-10.5)
[2018-11-14] MEDS: ACETAMINOPHEN 325 MG TABLET PO PRN (20:50)
[2018-11-14 20:59] LABS: HEMOGLOBIN 7.5 g/dL (12.0-15.5)
[2018-11-14] MEDS: ESCITALOPRAM OXALATE 10 MG TABLET PO SCH (22:14)
[2018-11-15] MEDS: ACETAMINOPHEN 325 MG TABLET PO PRN ×2 (04:28→09:19)
[2018-11-15] MEDS: GABAPENTIN 400 MG CAPSULE PO SCH ×3 (06:42→21:47)
--- NOTE | 2018-11-15 07:22 | PDOC PROGRESS REPORT ---
Subjective Progress Note for:: 11/15/18 Subjective:: Patient reported some degree of headache. No abdominal pain, nausea or vomiting. No chest pain or difficulty with breathing. No fever or chills. Reason For Visit: ACUTE UPPER GI BLEED, HTN,GERD Physical Exam Vital Signs: Temp Pulse Resp BP Pulse Ox 98.8 F 86 16 102/51 L 95 11/14/18 15:13 11/14/18 15:13 11/14/18 15:13 11/14/18 15:13 11/14/18 15:13 Intake & Output 11/14/18 11/15/18 11/16/18 06:59 06:59 06:59 Intake Total 2150 2227 Balance 2150 2227 Weight 79.3 kg 79.6 kg Physical Exam: General appearance: PRESENT: no acute distress, well-developed, well-nourished Head exam: PRESENT: atraumatic, normocephalic Eye exam: PRESENT: conjunctiva pale, pallor ABSENT: scleral icterus Ear exam: PRESENT: normal external ear exam Mouth exam: PRESENT: moist Respiratory exam: PRESENT: clear to auscultation abelino Cardiovascular exam: PRESENT: RRR. ABSENT: diastolic murmur, rubs, systolic murmur GI/Abdominal exam: PRESENT: normal bowel sounds, soft, tenderness - minimal epigastric region to deep palpation. ABSENT: distended, guarding, mass, organomegaly, rebound Extremities exam: ABSENT: pedal edema Musculoskeletal exam: ABSENT: tenderness Neurological exam: PRESENT: alert, awake, oriented to person, oriented to place, oriented to time, oriented to situation, CN II-XII grossly intact. ABSENT: motor sensory deficit Psychiatric exam: PRESENT: appropriate affect, normal mood. ABSENT: homicidal ideation, suicidal ideation Skin exam: PRESENT: dry, warm Results Laboratory Results: 11/14/18 20:10 11/12/18 23:56 11/14/18 20:10 WBC 7.7 RBC 2.72 L Hgb 7.5 L Hct 22.3 L MCV 82 MCH 27.4 MCHC 33.5 RDW 14.3 H Plt Count 238 Seg Neutrophils % 40.0 L Lymphocytes % 49.6 H Monocytes % 6.3 Eosinophils % 3.5 Basophils % 0.6 Absolute Neutrophils 3.1 Absolute Lymphocytes 3.8 Absolute Monocytes 0.5 Absolute Eosinophils 0.3 Absolute Basophils 0.0 Assessment & Plan - Diagnosis (1) Upper GI bleed Is this a current diagnosis for this admission?: Yes (2) Acute blood loss anemia Is this a current diagnosis for this admission?: Yes (3) Hypotension Qualifiers: Hypotension type: hypotension due to drug Qualified Code(s): I95.2 - Hypotension due to drugs Is this a current diagnosis for this admission?: Yes (4) HTN (hypertension) Qualifiers: Hypertension type: essential hypertension Qualified Code(s): I10 - Essential (primary) hypertension Is this a current diagnosis for this admission?: Yes (5) GERD (gastroesophageal reflux disease) Qualifiers: Esophagitis presence: esophagitis presence not specified Qualified Code(s): K21.9 - Gastro-esophageal reflux disease without esophagitis Is this a current diagnosis for this admission?: Yes - Time Time Spent with patient: 25-34 minutes Medications reviewed and adjusted accordingly: Yes Anticipated discharge: Home Within: Other - Inpatient Certification Based on my medical assessment, after consideration of the patient's comorbidities, presenting symptoms, or acuity I expect that the services needed warrant INPATIENT care.: Yes I certify that my determination is in accordance with my understanding of Medicare's requirements for reasonable and necessary INPATIENT services [42 CFR 412.3e].: Yes Medical Necessity: Significant Comorbidiites Make Outpatient Treatment Too Risky, Need Close Monitoring Due to Risk of Patient Decompensation, Need For IV Fluids, Need For Continuous Telemetry Monitoring, Risk of Complication if Not C ared For in Hospital, Risk of Diagnosis Which Will Require Inpatient Eval/Care/Monitoring Post Hospital Care: D/C Court Worker Documentation - Plan Summary Plan Summary: D/C IV fluid support. Start on Ferrous sulfate 325 mg p.o bidpcbs and Vitamin C 500 mg p.o bidpcbs
[2018-11-15] MEDS: PANTOPRAZOLE SODIUM 40 MG VIAL IV SCH ×2 (09:09→21:47)
[2018-11-15] MEDS: ASCORBIC ACID 500 MG TABLET PO SCH ×2 (09:10→17:42)
[2018-11-15] MEDS: FERROUS SULFATE 325 MG TABLET PO SCH ×2 (09:10→17:42)
[2018-11-15] MEDS: HYDROCHLOROTHIAZIDE 12.5 MG TABLET PO SCH (09:22)
[2018-11-15] MEDS: VALSARTAN 160 MG TABLET PO SCH (09:22)
[2018-11-15] MEDS: BUTALB/ACETAMINOPHEN/CAFFEINE 1 TAB EACH PO PRN (21:47)
[2018-11-15] MEDS: ESCITALOPRAM OXALATE 10 MG TABLET PO SCH (21:48)
[2018-11-16 05:15] LABS: ABSOLUTE EOSINOPHILS # (AUTO) 0.4 10^3/uL (0.0-0.6); ABSOLUTE LYMPHOCYTES (AUTO) 3.6 10^3/uL (0.5-4.7); ABSOLUTE MONOCYTES (AUTO) 0.5 10^3/uL (0.1-1.4); ABSOLUTE NEUT (AUTO) 3.7 10^3/uL (1.7-8.2); BASOPHILS % (AUTO) 0.5 % (0-2); EOSINOPHILS % (AUTO) 4.4 % (0-6); HEMATOCRIT 21.1 % (36.0-47.0); LYMPHOCYTES % (AUTO) 44.4 % (13-45); MEAN CORPUSCULAR HEMOGLOBIN 27.6 pg (27.0-33.4); MEAN CORPUSCULAR HGB CONC 33.9 g/dL (32.0-36.0); MEAN CORPUSCULAR VOLUME 82 fl (80-97); MONOCYTES % (AUTO) 5.8 % (3-13); PLATELET COUNT 259 10^3/uL (150-450); RED BLOOD COUNT 2.59 10^6/uL (3.72-5.28); RED CELL DISTRIBUTION WIDTH 14.3 % (11.5-14.0); SEGMENTED NEUTROPHILS % (AUTO) 44.9 % (42-78); TOTAL CELLS COUNTED % (AUTO) 100 %; WHITE BLOOD COUNT 8.2 10^3/uL (4.0-10.5)
[2018-11-16 05:21] LABS: HEMOGLOBIN 7.2 g/dL (12.0-15.5)
[2018-11-16] MEDS: GABAPENTIN 400 MG CAPSULE PO SCH ×2 (06:49→14:52)
[2018-11-16] MEDS: BUTALB/ACETAMINOPHEN/CAFFEINE 1 TAB EACH PO PRN ×2 (06:53→14:54)
[2018-11-16] MEDS: VALSARTAN 160 MG TABLET PO SCH (10:21)
[2018-11-16] MEDS: HYDROCHLOROTHIAZIDE 12.5 MG TABLET PO SCH (10:22)
[2018-11-16] MEDS: ASCORBIC ACID 500 MG TABLET PO SCH (10:23)
[2018-11-16] MEDS: FERROUS SULFATE 325 MG TABLET PO SCH (10:23)
[2018-11-16] MEDS ORDERED: PANTOPRAZOLE SODIUM 40 MG VIAL IV ONE (14:44)
[2018-11-16 16:49] VITALS: BP 107/63
--- NOTE | 2018-11-19 18:26 | PDOC DISCHARGE SUMMARY ---
General - Admit/Disc Date/PCP Admission Date/Primary Care Provider: 11/13/18 02:03 TAPAN QUIÑONES Discharge Date: 11/16/18 - Discharge Diagnosis (1) Upper GI bleed Is this a current diagnosis for this admission?: Yes (2) Acute blood loss anemia Is this a current diagnosis for this admission?: Yes (3) Hypotension Is this a current diagnosis for this admission?: Yes (4) HTN (hypertension) Is this a current diagnosis for this admission?: Yes (5) GERD (gastroesophageal reflux disease) Is this a current diagnosis for this admission?: Yes - Additional Information Resuscitation Status: Full Code Prescriptions: Ascorbic Acid [Vitamin C 500 mg Tablet] 500 mg PO BIDPCBS #60 tablet Ferrous Sulfate [Feosol 325 mg Tablet] 325 mg PO BIDPCBS #60 tablet Pantoprazole Sodium 40 mg PO BIDACBS #60 tablet.dr [place] Medications: Escitalopram Oxalate [Lexapro 10 mg Tablet] 10 mg PO QHS 11/13/18 Gabapentin [Neurontin 400 mg Capsule] 800 mg PO Q8 11/13/18 Valsartan/Hydrochlorothiazide [Valsartan-Hctz 160-12.5 mg Tab] 1 each PO DAILY 11/13/18 Ascorbic Acid [Vitamin C 500 mg Tablet] 500 mg PO BIDPCBS #60 tablet 11/16/18 Ferrous Sulfate [Feosol 325 mg Tablet] 325 mg PO BIDPCBS #60 tablet 11/16/18 Pantoprazole Sodium 40 mg PO BIDACBS #60 tablet. 11/16/18 History of Present Illness Patient complains of: Vomiting blood History of Present Illness: JENNIFER VALENTINO is a 53 year old female known to my practice who presented to the ED following her initial visit discharge vomiting bright red blood. Patient reported that her coworker checked her blood pressure due to reported episode of dizziness and found it low with associated tachycardia. She attributed this to her recent treatment with Lisinopril but advised to seek medical attention. Her initial ED visit evaluation was unrevealing and she was subsequently discharge home with instruction to follow up in the office. She reported feeling nauseous at home and vomited bright red blood which led to her return to the ED. She admitted to daily use of Goody Powder. she had EGD completed recently and she was informed that it was normal. She has been on Dexilant therapy for GERD and reported compliance with her medication. She denied any definite abdominal pain, diarrhea, or constipation. She denied cigarette smoking, alcohol abuse, or illicit drug usage. She was managed with IV Protonix infusion and Hespan due to associated hypotension and tachycardia. There was noticeable drop in her hemoglobin on laboratory evaluation. She was advised hospitalization for acute upper GI bleeding. Patient subsequently had several episodes of tarry stools while in the ED. Her morbidities include hypertension and GastroEsophageal Ref lux Disease. Hospital Course Hospital Course: She was managed with IV Protonix, fluid and Hespan support for acute upper GI bleed, symptomatic anemia and hypotensioin due to her mu-ism belief. She was seen in consultation by Dr. Barraza, manager of digital, and she had EGD completed on 11/14/18. Her EGD revealed chronic inactive gastritis without any other pathologic process on her final pathology findings. she was not transfused blood product due to her belief. She was started on Ferrous sulfate and Ascorbic Acid therapy for her acute blood loss anemia management. She will be discharged home today on Pantoprazole 40 mg p.o bid x 2 weeks and thereafter daily x 6 weeks. She will followup in the office as instructed upon discharge. Physical Exam Vital Signs: Temp Pulse Resp BP Pulse Ox 98.3 F 79 18 113/59 L 99 11/16/18 10:55 11/16/18 10:55 11/16/18 10:55 11/16/18 10:55 11/16/18 10:55 Intake & Output 11/15/18 11/16/18 11/17/18 06:59 06:59 06:59 Intake Total 2227 2911 480 Balance 2227 2911 480 Weight 79.6 kg 79 kg Physical Exam: General appearance: PRESENT: no acute distress, well-developed, well-nourished Head exam: PRESENT: atraumatic, normocephalic Eye exam: PRESENT: conjunctiva pale, pallor ABSENT: scleral icterus Ear exam: PRESENT: normal external ear exam Mouth exam: PRESENT: moist Respiratory exam: PRESENT: clear to auscultation abelino Cardiovascular exam: PRESENT: RRR. ABSENT: diastolic murmur, rubs, systolic murmur GI/Abdominal exam: PRESENT: normal bowel sounds, soft, tenderness - minimal epigastric region to deep palpation. ABSENT: distended, guarding, mass, organomegaly, rebound Extremities exam: ABSENT: pedal edema Musculoskeletal exam: ABSENT: tenderness Neurological exam: PRESENT: alert, awake, oriented to person, oriented to place, oriented to time, oriented to situation, CN II-XII grossly intact. ABSENT: motor sensory deficit Psychiatric exam: PRESENT: appropriate affect, normal mood. ABSENT: homicidal ideation, suicidal ideation Skin exam: PRESENT: dry, warm Results Laboratory Results: 11/16/18 04:32 11/12/18 23:56 11/16/18 04:32 WBC 8.2 RBC 2.59 L Hgb 7.2 L Hct 21.1 L MCV 82 MCH 27.6 MCHC 33.9 RDW 14.3 H Plt Count 259 Seg Neutrophils % 44.9 Lymphocytes % 44.4 Monocytes % 5.8 Eosinophils % 4.4 Basophils % 0.5 Absolute Neutrophils 3.7 Absolute Lymphocytes 3.6 Absolute Monocytes 0.5 Absolute Eosinophils 0.4 Absolute Basophils 0.0 Qualifiers - * PATIENT BEING DISCHARGED WITH ANY OF THE FOLLOWING DIAGNOSIS: No Acute Heart Failure - Is this a Heart Failure Patient?: No Plan Discharge Plan: D/C home today. Follow up in the office as instructed upon discharge.
== END 2018-11-16 17:29 | disposition home or self-care (01) | DRG 378 ==
LOC: ER 22:58 → EH 11-13 02:03 → 3W 11-13 22:10
PROVIDERS: ADMIT Internal Medicine Geriatric Medicine; ATTEND Internal Medicine Geriatric Medicine
PROC: 0DB68ZX Excision of Stomach, Via Natural or Artificial Opening Endoscopic, Diagnostic (ICD-10-PCS; principal; 2018-11-14 09:00)
DX: K25.4 Chronic or unspecified gastric ulcer with hemorrhage (principal); D62 Acute posthemorrhagic anemia; K29.81 Duodenitis with bleeding; I10 Essential (primary) hypertension; K21.9 Gastro-esophageal reflux disease without esophagitis; I95.2 Hypotension due to drugs; Z79.899 Other long term (current) drug therapy
CPT/HCPCS: 36415; 43239; 85025; 85027; 85610; 85730; 86850; 86900; 86901; 86920; 87070; 88305; 88342; 96374; 96376; 99285; J0171; J1200; J1610; J2250; J2310; J2405; J3010; J3490; J7030; S0164

== ENCOUNTER → 2019-01-17 | Outpatient (CLI) | payer BC ==
--- NOTE | 2019-01-18 08:16 | RADIOLOGY REPORT (SQ) ---
EXAM DESCRIPTION: U/S THYROID/SFT TISS HD NECK COMPLETED DATE/TIME: 01/17/2019 6:21 pm REASON FOR STUDY: R59.0 LOCALIZED ENLARGED LYMPH NODES R59.0 LOCALIZED ENLARGED LYMPH NODES COMPARISON: None. TECHNIQUE: Dynamic and static grayscale images acquired of the localized site of clinical concern an d recorded on PACS. Additional selected color Doppler and spectral images recorded. SITE OF CONCERN: Right supraclavicular region. LIMITATIONS: None. FINDINGS: SKIN AND SUBCUTANEOUS TISSUES: There are mildly prominent lymph nodes in the cervical alex ns bilaterally. On the right there is a focal node measured 10 x 9 x 9 mm. On the left there is in no which measures up to 1.6 cm in diameter. DEEP SOFT TISSUES/MUSCLES: No masses. No fluid collections. No edema. VASCULAR: No increased or decreased vascularity. No occlusions. OTHER: No other significant finding. IMPRESSION: Bilateral cervical adenopathy. This could be reactive or neoplastic. Clinical correlat ion is needed. The largest node is on the left measures 1.6 cm in diameter. TECHNICAL DOCUMENTATION: JOB ID: [id number] [email or web address]- All Rights Reserved Reading location - IP/workstation name: [email or web address]
== END ==
LOC: RAD 17:46
PROVIDERS: ATTEND Internal Medicine Geriatric Medicine
DX: R59.0 Localized enlarged lymph nodes (principal)
CPT/HCPCS: 76536

== ENCOUNTER → 2019-01-29 | Outpatient (CLI) | payer BC ==
--- NOTE | 2019-01-29 16:08 | RADIOLOGY REPORT (SQ) ---
EXAM DESCRIPTION: CT ABD/PELVIS WITH IV ORAL COMPLETED DATE/TIME: 01/29/2019 3:52 pm REASON FOR STUDY: (R59.1)GENERALIZED ENLARGED LYMPH NODES R59.1 GENERALIZED ENLARGED LYMPH NODES COMPARISON: 06/08/2015. TECHNIQUE: CT scan of the abdomen and pelvis performed using helical scanning technique with dynamic intravenous contrast injection. No oral contrast. Images reviewed with lung, soft tissue, and bone windows. Reconstructed coronal and sagittal MPR images reviewed. Delayed images for evaluation of the urinary system also acquired. All images stored on PACS. All CT scanners at this facility use dose modulation, iterative reconstruction, and/or weight based d osing when appropriate to reduce radiation dose to as low as reasonably achievable (ALARA). [facility]: Dose Right [facility]: CareDose [facility]: Dose Right [facility]: Teradose 4D [facility]: [employer] CONTRAST TYPE AND DOSE: contrast/concentration: Isovue 350.00 mg/ml; Total Contrast Delivered: 88.0 ml; Total Saline Delivered: 66.0 ml RENAL FUNCTION: Creatinine 0.8. RADIATION DOSE: CT Rad equipment meets quality standard of care and radiation dose reduction techniq ues were employed. CTDIvol: 7.4 - 8.6 mGy. DLP: 732 mGy-cm.. LIMITATIONS: None. FINDINGS: LOWER CHEST: No significant findings. No nodules or infiltrates. LIVER: Normal size. No masses. No dilated ducts. SPLEEN: Normal size. No focal lesions. PANCREAS: No masses. No significant calcifications. No adjacent inflammation or peripancreatic fluid collections. Pancreatic duct not dilated. GALLBLADDER: Surgically absent. ADRENAL GLANDS: No significant masses or asymmetry. RIGHT KIDNEY AND URETER: Small subcentimeter cortical cysts. No solid masses. No significant calci fications. No hydronephrosis or hydroureter. LEFT KIDNEY AND URETER: Small subcentimeter cortical cysts. No solid masses. No significant calcif ications. No hydronephrosis or hydroureter. AORTA AND VESSELS: No aneurysm. No dissection. Renal arteries, SMA, celiac without stenosis. RETROPERITONEUM: No retroperitoneal adenopathy, hemorrhage or masses. BOWEL AND PERITONEAL CAVITY: No masses or inflammatory changes. No free fluid or peritoneal masses. APPENDIX: Normal. PELVIS: No mass. No free fluid. Normal bladder. ABDOMINAL WALL: No masses. No hernias. BONES: No significant or acute findings. OTHER: 1.1 cm soft tissue nodule in the left upper quadrant just below the diaphragm (axial series 2, image 13 and coronal series 601, image 32). This is unchanged from the prior CT. IMPRESSION: 1. 1.1 CM SOFT TISSUE NODULE IN THE LEFT SUBPHRENIC SPACE, UNCHANGED FROM THE PRIOR STUDY IN JUNE 2015. THIS HAS A BENIGN APPEARANCE AND IS PROBABLY INCIDENTAL ACCESSORY SPLENIC TISSUE (SPLENULE). 2. STABLE SMALL SUBCENTIMETER CORTICAL CYSTS IN BOTH KIDNEYS. 3. NO OTHER SIGNIFICANT OR ACUTE FINDING IN THE ABDOMEN OR PELVIS ON CT SCAN WITH IV CONTRAST. TECHNICAL DOCUMENTATION: JOB ID: [id number] Quality ID # [id number]: Final reports with documentation of one or more dose reduction techniques (e.g., Au tomated exposure control, adjustment of the mA and/or kV according to patient size, use of iterative reconstruction technique) 2010 [employer]- All Rights Reserved Reading location - IP/workstation name: [email or web address]
== END ==
LOC: RAD 15:03
PROVIDERS: ATTEND Internal Medicine Geriatric Medicine
DX: R59.1 Generalized enlarged lymph nodes (principal)
CPT/HCPCS: 74177; 82565

== ENCOUNTER → 2019-03-05 | Day surgery (SDC) | payer BC ==
--- NOTE | 2019-03-05 14:58 | RADIOLOGY REPORT (SQ) ---
EXAM DESCRIPTION: U/S BIOPSY THYROID COMPLETED DATE/TIME: 03/05/2019 1:15 pm REASON FOR STUDY: LOCALIZED ENLARGED LYMPH NODES (R59.0) R59.0 LOCALIZED ENLARGED LYMPH NODES COMPARISON: None. TECHNIQUE: The procedure was discussed with the patient and written informed consent obtained. A ti meout was performed to confirm the procedure and patient's identity. The skin of the left neck was p repped and draped iin a sterile fashion and 5 cc of 1% lidocaine wasadministered for local anesthesia . Under sonographic guidance, fine needle aspiration biopsy was performed of a left cervical node de monstrating mild cortical thickening. 2 separate aspirations were performed. Hemostasis was obtain ed with direct manual compression. There were no immediate complications. LIMITATIONS: None. FINDINGS: Limited sonographic evaluation of the left iliac demonstrated multiple normal appearing ly mph nodes. Few no is demonstrated mild cortical thickening measuring up to 4 mm. Intraprocedural im aging demonstrates needle biopsy across the lesion of interest. PATHOLOGY: Pending. IMPRESSION: Ultrasound-guided fine-needle aspiration of a left cervical lymph node as detailed above . PATHOLOGY PENDING AT THE TIME OF DICTATION. COMMENT: Patient medication list reviewed: Yes- Quality ID# [id number]:Eligible professional attests to doc umenting in the medical record they obtained, updated, or reviewed the patient's current medications. TECHNICAL DOCUMENTATION: JOB ID: [id number] [employer]- All Rights Reserved Reading location - IP/workstation name: [email or web address]
== END ==
LOC: RAD 09:00
PROVIDERS: ATTEND Internal Medicine Geriatric Medicine
DX: R59.0 Localized enlarged lymph nodes (principal); I10 Essential (primary) hypertension; M79.7 Fibromyalgia; M79.2 Neuralgia and neuritis, unspecified
CPT/HCPCS: 60100; 88173

== ENCOUNTER 2019-08-21 14:21 | Emergency (ER) | payer BC ==
--- NOTE | 2019-08-21 14:53 | ER Document Report ---
ED Cardiac - General Chief Complaint: Chest Pain Stated Complaint: SHORTNESS OF BREATH/CHEST PAIN Time Seen by Provider: 08/21/19 14:45 Primary Care Provider: TAPAN QUIÑONES MD [Primary Care Provider] - Follow up in 1 week Notes: Patient is 54-year-old female who presents to the emergency department with a chief complaint of shortness of breath and chest pain. Patient states that she has had on and off symptoms of back pain, generalized muscle aches, and on and off chest pain for the past few weeks. Denies any fever. Denies any exposure to anybody with COVID 19. Patient states that she was referred to a animal caretaker supervisor by her primary care provider, but due to the coronavirus, she was not able to see the animal caretaker supervisor. She continues to have symptoms. She took ibuprofen, and states that her symptoms were better. TRAVEL OUTSIDE OF THE [place] IN LAST 30 DAYS: No - Related Data Allergies/Adverse Reactions: No Known Allergies Allergy (Verified 11/12/18 12:15) Past Medical History - Social History Smoking Status: Never Smoker Chew tobacco use (# tins/day): No Frequency of alcohol use: None Drug Abuse: None Family History: Reviewed & Not Pertinent, Other - No family history of early heart attacks or strokes. Patient has suicidal ideation: No Patient has homicidal ideation: No - Past Medical History Cardiac Medical History: Reports: Hx Hypertension Neurological Medical History: Denies: Hx Seizures Renal/ Medical History: Denies: Hx Peritoneal Dialysis GI Medical History: Reports: Hx Gastroesophageal Reflux Disease Psychiatric Medical History: Reports: Hx Depression Past Surgical History: Reports: Hx Cholecystectomy, Hx Orthopedic Surgery - right knee repair - Immunizations Hx Diphtheria, Pertussis, Tetanus Vaccination: Yes Review of Systems - Review of Systems Notes: REVIEW OF SYSTEMS: CONSTITUTIONAL : Denies recent illness. Denies recent unintentional weight loss. Denies fever, chills, or sweats. EENT: Denies eye, ear, throat, or mouth pain, discharge, or symptoms. Denies nasal or sinus congestion. CARDIOVASCULAR: See HPI. RESPIRATORY: Denies shortness of breath, cough, congestion, difficulty breathing, or wheezing. GASTROINTESTINAL: Denies nausea, vomiting, and diarrhea. Denies abdominal pain. Denies constipation. GENITOURINARY: Denies difficulty urinating, burning, blood in urine, urgency or frequency. MUSCULOSKELETAL: Denies neck and back pain. Denies joint pain or swelling. SKIN: Denies rash, itchiness, or lesions HEMATOLOGIC : Denies easy bruising or bleeding. LYMPHATIC: Denies swollen, painful, enlarged glands. NEUROLOGICAL: Denies no numbness or tingling denies weakness. Denies headache. Denies altered mental status. Denies alteration in speech. PSYCHIATRIC: Denies stress, anxiety, alteration in sleep patterns, or depression. All other systems reviewed and negative. Physical Exam - Vital signs Vitals: Temp Resp Pulse Ox 98.5 F 15 99 08/21/19 14:26 08/21/19 14:26 08/21/19 14:26 - Notes Notes: PHYSICAL EXAMINATION: GENERAL: Appears well, healthy, well-nourished, no acute distress. HEAD: Normocephalic, atraumatic. EYES: PERRL, conjunctiva normal, all extraocular movements intact, sclera nonicteric ENT: Moist mucous membranes. NECK: Supple, no noticeable swelling, redness, rash. Normal range of motion. LUNGS: Equal breath sounds bilaterally and clear to auscultation. No wheezes rales or rhonchi. CARDIOVASCULAR: S1-S2, regular rate, regular rhythm. Radial pulses 2+, normal. ABDOMEN: Normoactive bowel sounds. Soft, nontender, no guarding, no rebound tenderness, and no masses palpated. EXTREMITIES: Normal strength and range of motion, no pitting or edema. No cyanosis. NEUROLOGICAL: Moves all extremities upon command. Strength 5/5 in all extremities. PSYCH: Normal mood, normal affect. SKIN: Warm, dry. No rash, lesions, ulcerations noted. Normal skin turgor. CHEST WALL: Tenderness to right lateral chest; no tenderness to left side of chest. Course - Re-evaluation Re-evalutation: 08/22/19 Hematology and chemistries are unremarkable. CK is mildly elevated, but no rhabdomyolysis noted. Troponin is unremarkable. CT of the chest did not show any pulmonary findings, but there was findings that were stable since her last CT back in January 2019. I discussed these findings with the patient. She will follow-up with her primary care provider in regards to this visit. I have a low suspicion for any life-threatening etiology at this time. I do not suspect a pulmonary emboli, ACS, aortic dissection, or any life-threatening etiology. Instructed the patient to continue ibuprofen to help with pain, and this is most likely costochondritis or a musculoskeletal pain that she is experiencing. Follow-up precautions were given. Verbal discharge instructions were given to the patient. They verbalized understanding. They are stable for discharge. - Vital Signs Vital signs: Temp Pulse Resp BP Pulse Ox 98.5 F 82 17 95/77 L 100 08/21/19 14:36 08/21/19 14:36 08/21/19 18:03 08/21/19 18:03 08/21/19 17:03 - Laboratory Result Diagrams: 08/21/19 16:26 08/21/19 16:26 Laboratory results interpreted by me: 08/21/19 08/21/19 16:26 16:26 RDW 14.9 H Lymph % (Auto) 50.4 H Seg Neutrophils % 37.8 L Creatine Kinase 198 H - EKG Interpretation by Me Additional EKG results interpreted by me: 08/21/19 14:52 Sinus rhythm. Rate 79. MA 188; QRS 84; QT 372; QTc 427. No ST elevations or depressions. Normal R wave progression. Discharge - Discharge Clinical Impression: Shortness of breath, Chest wall pain Condition: Stable Disposition: HOME, SELF-CARE Additional Instructions: You are seen today in the emergency department for shortness of breath and chest pain. Your CT did not show any findings. It showed some findings that were already found back in January. Please follow-up with your primary care provider in regards to this visit. Follow-up with pulmonology when you are able to make an appointment. Make sure you drink plenty of water, as [facility] Forms: Return to Work Referrals: TAPAN QUIÑONES MD [Primary Care Provider] - Follow up in 1 week
--- NOTE | 2019-08-21 15:32 | RADIOLOGY REPORT (SQ) ---
EXAM DESCRIPTION: CHEST SINGLE VIEW IMAGES COMPLETED DATE/TIME: 08/21/2019 3:22 pm REASON FOR STUDY: chest pain COMPARISON: 11/12/2018 EXAM PARAMETERS: NUMBER OF VIEWS: One view. TECHNIQUE: Single frontal radiographic view of the chest acquired. RADIATION DOSE: NA LIMITATIONS: None. FINDINGS: LUNGS AND PLEURA: No opacities, masses or pneumothorax. No pleural effusion. MEDIASTINUM AND HILAR STRUCTURES: No masses. Contour normal. HEART AND VASCULAR STRUCTURES: Heart normal in size. Normal vasculature. BONES: No acute findings. HARDWARE: None in the chest. OTHER: Cholecystectomy clips. IMPRESSION: NO ACUTE RADIOGRAPHIC FINDING IN THE CHEST. TECHNICAL DOCUMENTATION: JOB ID: [id number] 2010 [employer]- All Rights Reserved Reading location - IP/workstation name: [email or web address]
[2019-08-21 16:47] LABS: ABSOLUTE BASOPHILS # (AUTO) 0.1 10^3/uL (0.0-0.2); ABSOLUTE EOSINOPHILS # (AUTO) 0.2 10^3/uL (0.0-0.6); ABSOLUTE MONOCYTES (AUTO) 0.4 10^3/uL (0.1-1.4); ABSOLUTE NEUT (AUTO) 2.3 10^3/uL (1.7-8.2); BASOPHILS % (AUTO) 1.5 % (0-2); HEMATOCRIT 42.2 % (36.0-47.0); HEMOGLOBIN 14.2 g/dL (12.0-15.5); LYMPHOCYTES % (AUTO) 50.4 % (13-45); MEAN CORPUSCULAR HEMOGLOBIN 27.1 pg (27.0-33.4); MEAN CORPUSCULAR HGB CONC 33.6 g/dL (32.0-36.0); MEAN CORPUSCULAR VOLUME 80 fl (80-97); MONOCYTES % (AUTO) 6.3 % (3-13); PLATELET COUNT 306 10^3/uL (150-450); RED BLOOD COUNT 5.25 10^6/uL (3.72-5.28); RED CELL DISTRIBUTION WIDTH 14.9 % (11.5-14.0); SEGMENTED NEUTROPHILS % (AUTO) 37.8 % (42-78); TOTAL CELLS COUNTED % (AUTO) 100 %
[2019-08-21] MEDS: ONDANSETRON HCL INJ/PF 4 MG/2 ML SDV IV ONE ×2 (16:47→17:37)
[2019-08-21 17:10] LABS: ALBUMIN 4.7 g/dL (3.5-5.0); ALKALINE PHOSPHATASE 86 U/L (38-126); ANION GAP 8 (5-19); ASPARTATE AMINO TRANSFERASE 24 U/L (14-36); BILIRUBIN,TOTAL 0.4 mg/dL (0.2-1.3); BLOOD UREA NITROGEN 19 mg/dL (7-20); CALCIUM 9.9 mg/dL (8.4-10.2); CARBON DIOXIDE 29 mmol/L (22-30); CHLORIDE 102 mmol/L (98-107); CREATINE KINASE 198 U/L (30-135); GLUCOSE 103 mg/dL (75-110); POTASSIUM 4.3 mmol/L (3.6-5.0)
[2019-08-21 18:19] VITALS: BP 95/77
--- NOTE | 2019-08-21 18:48 | EKG REPORT ---
SEVERITY:- BORDERLINE ECG - SINUS RHYTHM BORDERLINE T ABNORMALITIES, ANTERIOR LEADS : Confirmed by: Priyanka Klein 21-Aug-2019 18:46:46
--- NOTE | 2019-08-21 19:05 | RADIOLOGY REPORT (SQ) ---
EXAM DESCRIPTION: CT CHEST WITH IMAGES COMPLETED DATE/TIME: 08/21/2019 6:31 pm REASON FOR STUDY: right sided chest pain COMPARISON: CT abdomen and pelvis examination dated 01/29/2019 TECHNIQUE: CT scan of the chest performed using helical scanning technique with dynamic intravenous contrast injection. Images reviewed with lung, soft tissue and bone windows. Reconstructed coronal and sagittal MPR and MIP images reviewed. All images stored on PACS. All CT scanners at this facility use dose modulation, iterative reconstruction, and/or weight based d osing when appropriate to reduce radiation dose to as low as reasonably achievable (ALARA). [facility]: Dose Right [facility]: CareDose [facility]: Dose Right [facility]: Teradose 4D [facility]: CO2Stats CONTRAST TYPE AND DOSE: contrast/concentration: Isovue 350.00 mg/ml; Total Contrast Delivered: 80.0 ml; Total Saline Delivered: 55.0 ml RENAL FUNCTION: Creatinine -0.87 BUN=19 RADIATION DOSE: CT Rad equipment meets quality standard of care and radiation dose reduction techniq ues were employed. CTDIvol: 7.8 mGy. DLP: 341 mGy-cm. . LIMITATIONS: None. FINDINGS: LUNGS AND PLEURA: No opacities, nodules, masses. No pneumothorax. No effusions. HILAR AND MEDIASTINAL STRUCTURES: No identified masses or abnormal nodes. HEART AND VASCULAR STRUCTURES: No aneurysm or dissection. No central pulmonary emboli. No pericardi al effusion. HARDWARE: None in the chest. UPPER ABDOMEN: Small stable bilateral renal cysts. Prior cholecystectomy. A well-circumscribed nod ule adjacent to the lateral aspect of the hepatic flexure in the left subphrenic space, axial image 4 2, series 2, may represent a splenule, stable finding since the CT abdomen study dated 01/29/2019. Sm all hiatal hernia. Limited exam. THYROID AND OTHER SOFT TISSUES: No masses. No adenopathy. BONES: No significant finding. OTHER: No other significant finding. IMPRESSION: 1. No acute pulmonary findings. 2. Additional stable findings since the CT abdomen and pelvis examination dated 01/29/2019. TECHNICAL DOCUMENTATION: JOB ID: [id number] Quality ID # [id number]: Final reports with documentation of one or more dose reduction techniques (e.g., Au tomated exposure control, adjustment of the mA and/or kV according to patient size, use of iterative reconstruction technique) 2010 [employer]- All Rights Reserved Reading location - IP/workstation name: [email or web address]
== END 2019-08-21 19:15 | disposition home or self-care (01) ==
LOC: ER 14:21
DX: R06.02 Shortness of breath (principal); R07.89 Other chest pain; I10 Essential (primary) hypertension; Z90.49 Acquired absence of other specified parts of digestive tract
CPT/HCPCS: 36415; 71045; 71260; 80053; 82550; 83735; 84484; 85025; 93005; 93010; 99285; J2405